=== PATIENT | male | born 1955 | race Caucasian/White ===

== ENCOUNTER 2018-02-01 18:42 | Observation (INO) | payer OTHER ==
--- OUTSIDE RECORDS SUMMARY | 2018-02-01 19:39 | XMS REPORT | Clinical Summary ---
:1955 Author Organization [facility] Address [address] [place] [address] Care Team Providers Name Role Phone Asked, No Pcp Primary Care Provider Unavailable Allergies Active Allergy Reactions Severity Noted Date Comments Iodine And Iodide Containing Products Anaphylaxis High Current Medications Prescription Sig. Disp. Refills Start Date End Date Status amoxicillin-pot Take 1 tablet by 0 03/30/2017 Active clavulanate (AUGMENTIN) mouth 2 (two) times 875-125 mg per tablet a day. atorvastatin (LIPITOR) 10 Take 10 mg by mouth 0 03/30/2017 Active MG tablet every morning. dextroamphetamine-ampheta Take 1 tablet by 0 04/26/2017 Active mine (ADDERALL) 20 mg mouth 3 (three) tablet times a day. gabapentin (NEURONTIN) 04/29/2017 Active 300 mg capsule losartan-hydrochlorothiaz Take 1 tablet by 0 03/30/2017 Active marge (HYZAAR) 100-12.5 mg mouth every per tablet morning. losartan-hydrochlorothiaz Take 1 tablet by 0 02/18/2017 Active marge (HYZAAR) 100-25 mg mouth every per tablet morning. meloxicam (MOBIC) 7.5 mg Take 7.5 mg by 0 03/30/2017 Active tablet mouth once daily. Active Problems Not on file Encounters Date Type Specialty Care Team Description 05/05/2017 Office Visit Neurosurgery Joaquin Adrian MD Cervical radiculopathy at C7 (Primary Dx) after 01/31/2017 Family History Medical History Relation Name Comments Colon cancer Mother Relation Name Status Comments Brother Alive Father Mother Sister Alive Sister Alive Sister Social History Tobacco Use Types Packs/Day Years Used Date Current Every Day Smoker Smokeless Tobacco: Never Used Alcohol Use Drinks/Week oz/Week Comments Yes Sex Assigned at Date Recorded Not on file Last Filed Vital Signs Not on file Plan of Treatment Health Maintenance Due Date Last Done Comments COLON CANCER SCREENING 2007 SHINGRIX VACCINE (#1) 2007 ZOSTER VACCINE 2017 INFLUENZA VACCINE 04/14/2018 Results Not on fileafter 01/31/2017 Insurance Payer Benefit Plan / Group Subscriber ID Type Phone Address NURIS [facility]WL[employer]WORK xxxxxxxxxxx HMO [phone] [facility], [address] [place], [place] [id number]
--- NOTE | 2018-02-01 21:26 | RAD REPORT ---
EXAM DESCRIPTION: RAD - Chest Pa And Lat (2 Views) - 02/01/2018 9:21 pm CLINICAL HISTORY: Pneumonia, chest pain. COMPARISON: None. TECHNIQUE: PA and lateral views of the chest were obtained. FINDINGS: The lungs are hyperexpanded compatible with COPD. The heart is upper limit of normal in si ze. No fracture or aggressive bony process. IMPRESSION: COPD without acute process identified.
--- NOTE | 2018-02-01 21:33 | RAD REPORT ---
EXAM DESCRIPTION: CT - Head Brain Wo Cont - 02/01/2018 9:24 pm CLINICAL HISTORY: Headache, seizure. COMPARISON: None. TECHNIQUE: All CT scans are performed using dose optimization technique as appropriate and may inclu de automated exposure control or mA/KV adjustment according to patient size. FINDINGS: No intracranial hemorrhage, hydrocephalus or extra-axial fluid collection.No areas of brai n edema or evidence of midline shift. Mild mucoperiosteal thickening involves the ethmoid air cells. 8 mm osteoma seen in the region of the frontal sinus. The remainder of the paranasal sinuses and mastoids are clear. The calvarium is intac t. IMPRESSION: No acute intracranial abnormality.
[2018-02-01 22:44] LABS: Absolute Monocytes 1.3 K/uL (0.1-1.3); Absolute Neutrophil 10.4 K/uL (1.8-8.0); Basophils % 0.8 % (0-1.3); Eosinophils % 4.2 % (0-4.4); Hematocrit 47.3 % (39.6-49.0); Lymphocytes % 24.2 % (15.3-44.8); MCH 30.7 pg (27.0-35.0); MCV 91.6 fL (80-100); MPV 7.8 fL (7.6-11.3); RBC Red Blood Cell Count 5.16 M/uL (4.33-5.43)
[2018-02-01 22:54] LABS: Albumin 4.8 g/dL (3.2-5.5); Potassium 3.6 mEq/L (3.6-5.0); Protein, Total 7.9 g/dL (6.0-8.3)
[2018-02-01] MEDS: NACHLORIDE 0.45% 1,000 ML IV SCH (23:09)
[2018-02-01 23:45] LABS: Urine Appearance CLOUDY; Urine Bilirubin NEGATIVE (NEG); Urine Blood NEGATIVE (NEG); Urine Color YELLOW; Urine Glucose NEGATIVE (NEG); Urine Protein 1+ (NEG); Urine Urobilinogen 0.2 mg/dL (0.2-1.0); Urine pH 5.5 (5.0-7.0)
[2018-02-01 23:46] LABS: Urine Microscopic Reflex ORDER UMIC
[2018-02-02 00:13] LABS: Urine Bacteria 20-50 /HPF (NONE SEEN); Urine RBC <5 /HPF (NONE SEEN)
[2018-02-02 00:14] LABS: Urine Culture Reflex Order REFLEXED
[2018-02-02] MEDS ORDERED: CIPROFLOXACIN 400mg IV 400 MG/200 ML BAG IV ONE (00:37)
[2018-02-02] MEDS ORDERED: CEFTRIAXONE 1 GM/NS 50 ML 1 GM/50 ML BAG IV ONE (00:39)
[2018-02-02 01:48] VITALS: O2SAT 98; BMI 25.5
[2018-02-02] MEDS ORDERED: CEFTRIAXONE 1000 MG/VIAL ONE (02:19)
[2018-02-02] MEDS ORDERED: AMITRIPTYLINE 10 MG TAB PO PRN (08:30)
[2018-02-02] MEDS: AMPHETAMINE SULFATE PO SCH ×3 (09:00→14:00)
--- NOTE | 2018-02-02 09:38 | RAD REPORT ---
EXAM DESCRIPTION: MRI - Brain Wo Cont - 02/02/2018 8:43 am CLINICAL HISTORY: Seizure, CVA. COMPARISON: 02/01/2018 CT head TECHNIQUE: Multi-sequence, multiplanar MR imaging of the brain was performed without contrast. FINDINGS: No intracranial hemorrhage, hydrocephalus or extra-axial fluid collections. No edema or sh ift of midline structures. 6 mm area of blooming artifact in the right cerebellar hemisphere posterio rly, probably related to hemosiderin deposition. A small cavernoma is suspected. DWI is negative for acute CVA. Midline structures are normally formed. Mastoid air cells and paranasal sinuses are clear. 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 Negative for acute CVA or other acute intracranial abnormality.
--- NOTE | 2018-02-02 10:06 | RAD REPORT ---
EXAM DESCRIPTION: CT - Abdomen Pelvis Wo Contrast - 02/02/2018 8:05 am CLINICAL HISTORY: Abdominal pain, flank pain, remote history of kidney stone COMPARISON: None. TECHNIQUE: Axial [address] imaging of the abdomen and pelvis was performed without IV contrast. No IV contrast was given because of allergy, abnormal renal function, patient refusal or physician re quest. No oral contrast administered. All CT scans are performed using dose optimization technique as appropriate and may include automated exposure control or mA/KV adjustment according to patient size. FINDINGS: No suspicious findings in the lung bases. No pericardial thickening or effusion. The liver, spleen and pancreas show no suspicious findings on non-contrast imaging. Gallbladder and b iliary tree are also without suspicious finding. No hydronephrosis or suspicious renal mass. Trace amount of stranding is seen in the perinephric fat. Lateral left mid kidney shows a 7 millimeter low-density area in the cortex that is probably a cyst. Findings not fully characterized. Long-term significance is doubtful. No significant adrenal finding . Isodense renal masses and pyelonephritis cannot be excluded in the absence of IV contrast. The urin yoli bladder is without significant finding. Prostate gland and seminal vesicles within normal limits. No dilated bowel loops or bowel wall thickening. No free air, free fluid or inflammatory stranding. N o hernia, mass or bulky lymphadenopathy. No suspicious bony findings. IMPRESSION: No hydronephrosis, obstructing calculus or acute finding identified. Pyelonephritis and isodense masses are not excluded on a noncontrast study. Full assessment is limited is the absence of IV contrast.
[2018-02-02] MEDS: NACHLORIDE 0.45% 1,000 ML IV SCH (11:12)
[2018-02-02 14:17] LABS: Absolute Lymphocytes (CBC) 3.3 K/uL (0.7-4.9); Absolute Monocytes 1.1 K/uL (0.1-1.3); Absolute Neutrophil 7.4 K/uL (1.8-8.0); Basophils % 0.8 % (0-1.3); Eosinophils % 7.4 % (0-4.4); Hematocrit 43.5 % (39.6-49.0); Lymphocytes % 25.7 % (15.3-44.8); MCH 31.2 pg (27.0-35.0); MCV 91.7 fL (80-100); MPV 7.9 fL (7.6-11.3); Monocytes % 8.9 % (3.3-12.3); RBC Red Blood Cell Count 4.75 M/uL (4.33-5.43)
[2018-02-02 14:37] LABS: Potassium 4.1 mEq/L (3.6-5.0)
[2018-02-02 16:42] VITALS: BP 144/66; TEMP 97.7
[2018-02-02] MEDS ORDERED: ATORVASTATIN 10 MG TAB PO SCH (21:00)
--- NOTE | 2018-02-03 02:06 | HP ---
Date of Admission: 02/01/2018 Chief Complaint: Two episodes of confusion. History Of Present Illness: A 62-year-old male who was brought to the office with history of 2 episo tesfaye of sweating and confusion. When the patient was brought to the office, he was able to give histo ry. However, he was not clear about the nature of spells he had as it was not clear why patient had such a history. The patient was admitted for observation. There was no history of seizures. No his tory of motor weakness. Past Medical History: The patient is known to have history of hypertension and osteoarthritis, and A DD. Family History: Noncontributory. Personal History: Allergic to shellfish and iodine. Home Medicines: Please refer to the chart. Review of Systems: No history of chest pain or shortness of breath. Physical Examination: General: Revealed 62-year-old male, alert at the time of exam. Afebrile. HEENT: Negative. Neck: Supple. JVD negative. Chest: Clear. Heart: Regular. Abdomen: Soft, nontender. Extremities: No edema. Laboratory Data: White count 16.6, hemoglobin normal. Chem profile; BUN 26, creatinine 2.04, otherw ise negative. Diagnostic Data: Chest x-ray negative. CT scan of the head and MRI of the head negative. Urinalysis, bacteriuria present. Assessment: 1.Probable urinary tract infection with secondary confusion. 2.Hypertension. 3.History of attention deficit disorder. Plan: The patient had IV Cipro and Rocephin. Today, the patient is fully alert. He did not have an y fever. However, he wants to go home. He was told that there is 10% chance that symptoms of urinar y tract infection might return. However, he is willing to take the risk and take oral antibiotics. He was given prescription for Cipro and Keflex, pending the urine culture reports. The patient was i nstructed to increase oral fluids and to hold off meloxicam. RRK/MODL Voice ID: [id number]
== END 2018-02-02 17:06 | disposition home or self-care (01) ==
LOC: 4TH 19:36
PROVIDERS: ADMIT Internal Medicine; ATTEND Internal Medicine
DX: R41.82 Altered mental status, unspecified (principal); I10 Essential (primary) hypertension; M19.90 Unspecified osteoarthritis, unspecified site; Z91.013 Allergy to seafood
CPT/HCPCS: 36415; 70450; 70551; 71046; 74176; 80048; 80053; 81003; 81015; 85025; 87040; 87086; 87088; G0378; J0696; J0744

== ENCOUNTER 2024-03-08 10:28 | Inpatient (IN) | payer OTHER ==
[2024-03-08] MEDS ORDERED: ONDANSETRON 4 MG/2 ML VIAL ONE (10:42)
[2024-03-08] MEDS ORDERED: KETOROLAC 30 MG/ML INJ ONE (10:43)
[2024-03-08] MEDS ORDERED: MORPHINE 4 MG/ML SYR ONE (10:43)
[2024-03-08] MEDS ORDERED: NA CHLORIDE 0.9% 1,000 ML ONE (10:43)
[2024-03-08 10:55] LABS: Absolute Basophils 0.1 K/uL (0-0.5); Absolute Eosinophils 0.8 K/uL (0-0.5); Absolute Lymphocytes (CBC) 3.7 K/uL (0.7-4.9); Absolute Monocytes 1.1 K/uL (0.1-1.3); Absolute Neutrophil 9.3 K/uL (1.8-8.0); Basophils % 0.7 % (0-1.3); Eosinophils % 5.6 % (0-4.4); Hematocrit 32.8 % (39.6-49.0); Lymphocytes % 24.7 % (15.3-44.8); MCH 30.7 pg (27.0-35.0); MCHC 33.7 g/dL (32.0-36.0); MCV 91.2 fL (80-100); MPV 7.1 fL (7.6-11.3); Monocytes % 7.5 % (3.3-12.3); Neutrophils % 61.5 % (41.7-73.7); Platelets 413 thou/uL (152-406); Red Cell Distribution Width 13.3 % (12.1-15.2)
[2024-03-08 11:19] LABS: Albumin 3.3 g/dL (3.4-5.0); Anion Gap 7.6 mEq/L (5.0-15.0); Bilirubin Total 0.4 mg/dL (0.2-1.0); Globulin 3.3 g/dL (2.3-3.5); Potassium 3.6 mEq/L (3.5-5.1); Protein, Total 6.6 g/dL (6.4-8.2)
[2024-03-08] MEDS ORDERED: NA CHLORIDE 0.9% 100 ML ONE (11:32)
[2024-03-08] MEDS ORDERED: CEFEPIME 1 GM/VIAL ONE (11:33)
--- NOTE | 2024-03-08 12:28 | RAD REPORT ---
EXAM DESCRIPTION: CT - Stone Protocol - 03/08/2024 12:05 pm CLINICAL HISTORY: Abd pain;Flank pain COMPARISON: Abdomen Pelvis Wo Contrast dated 02/02/2018 TECHNIQUE: Thin cut axial CT imaging of the abdomen and pelvis was performed without IV contrast. Mu ltiplanar reformats were generated and reviewed. All CT scans are performed using dose optimization technique as appropriate and may include automated exposure control or mA/KV adjustment according to patient size. FINDINGS: No suspicious findings in the lung bases. The liver shows diffuse parenchymal hypoattenuation suggesting steatosis. Adrenal glands, spleen, and pancreas show no suspicious findings. Gallbladder and biliary tree are also without suspicious findi ng. Symmetric renal contour, without suspicious parenchymal findings within limits of noncontrast techniq ue. No evidence of radiopaque calculi or hydroureteronephrosis. No dilated bowel loops or bowel wall thickening. No free air, free fluid or inflammatory stranding. N o hernia, mass or bulky lymphadenopathy. The urinary bladder is shows regional wall thickening along the left wall inferiorly, with adjacent pericystic fat stranding. Lobulated hyperdense material layer ing dependently, suggesting blood clots. Mild prostatomegaly. No suspicious bony findings. IMPRESSION: Regional left bladder wall thickening with adjacent pericystic fat stranding. This could relate to focal cystitis/inflammation, although possibility of malignancy cannot be entirely exclude d. Lobulated hyperdense material layering dependently in the bladder, suggesting blood clots. Other incidental findings as above. Findings were communicated to Daniel Arrington in the ED on 03/08/2024 at 11:20 a.m.
--- NOTE | 2024-03-08 13:05 | ER ---
Nurse's Notes [facility] Name: Emigdio Dhaliwal Age: 68 yrs Sex: Male : 1955 Arrival Date: 03/08/2024 Time: 10:28 Bed 8 Private MD: Diagnosis: Hematuria, unspecified;Other retention of urine;UTI/ Urinary tract infection, site not specified;Elevated white blood cell count Presentation: 03/08 10:33 Chief complaint: Patient states: "I feel like I have a kidney stone. For the past 4 mb9 days, I've been urinating blood and having pain in my pelvis area.". Coronavirus screen: Vaccine status: Patient reports being unvaccinated. Ebola Screen: No symptoms or risks identified at this time. Initial Sepsis Screen: Does the patient meet any 2 criteria? No. Patient's initial sepsis screen is negative. Does the patient have a suspected source of infection? No. Patient's initial sepsis screen is negative. Risk Assessment: Do you want to hurt yourself or someone else? Patient reports no desire to harm self or others. Onset of symptoms was March 08, 2024. 10:33 Method Of Arrival: Ambulatory mb9 10:33 Acuity: BEN 3 mb9 Triage Assessment: 10:36 General: Appears uncomfortable, Behavior is cooperative. Pain: Complains of pain in mb9 pelvis Pain does not radiate. Pain currently is 10 out of 10 on a pain scale. Quality of pain is described as sharp, stabbing, Pain began 2-3 days ago. Is continuous. EENT: No signs and/or symptoms were reported regarding the EENT system. Neuro: Pereira Agitation-Sedation Scale (RASS): 0 - Alert and Calm Level of Consciousness is awake, alert, obeys commands, Oriented to person, place, time, situation, Appropriate for age. Cardiovascular: Patient's skin is warm and dry. Respiratory: Airway is patent Respiratory effort is even, unlabored, Respiratory pattern is regular, symmetrical. GI: Abdomen is round non-distended. : Reports blood in urine. Derm: Skin is pink, warm \\T\\ dry. Musculoskeletal: Range of motion: intact in all extremities. Historical: - Allergies: 10:35 Iodine; mb9 - Home Meds: 10:35 Adderall XR 20 mg Oral Capsule, ER 24 hr [Active]; Lorazepam Oral [Active]; BuSpar Oral mb9 [Active]; - PMHx: 10:35 Hypertensive disorder; Anxiety; mb9 - PSHx: 10:35 Clavicle resection- Left; mb9 - Immunization history:: Adult Immunizations up to date. - Infectious Disease History:: Denies. - Social history:: Smoking status: Patient reports the use of cigarette tobacco products, denies chronic smoking, but will smoke occasionally. - Family history:: not pertinent. Screenin:[birth year] [facility] ED Fall Risk Assessment (Adult) History of falling in the last 3 months, ko1 including since admission No falls in past 3 months (0 pts) Confusion or Disorientation No (0 pts) Intoxicated or Sedated No (0 pts) Impaired Gait No (0 pts) Mobility Assist Device Used No (0 pt) Altered Elimination No (0 pt) Score/Fall Risk Level 0 - 2 = Low Risk Oriented to surroundings, Maintained a safe environment, Educated pt \\T\\ family on fall prevention, incl call for assistance when getting out of bed, Assessed \\T\\ reinforced patient's understanding of fall precautions, Provided non-skid footwear, Hourly rounding (assess needs \\T\\ fall precautionary measures) done, Used ambulatory aids as needed (educated on \\T\\ assisted with), Used gait belt as appropriate. Abuse screen: Denies threats or abuse. Denies injuries from another. Nutritional screening: No deficits noted. Tuberculosis screening: No symptoms or risk factors identified. Assessment: 10:57 General: Appears in no apparent distress. uncomfortable, Behavior is calm, cooperative, ko1 appropriate for age. Pain: Complains of pain in pelvis. Neuro: No deficits noted. Cardiovascular: No deficits noted. Respiratory: No deficits noted. GI: Bowel sounds present X 4 quads. Abd is soft and non tender X 4 quads. : Reports bloody urine. EENT: No deficits noted. Derm: No deficits noted. Musculoskeletal: No deficits noted. 12:19 Reassessment: Patient appears in no apparent distress at this time. Patient and/or ph family updated on plan of care and expected duration. Pain level reassessed. Patient is alert, oriented x 3, equal unlabored respirations, skin warm/dry/pink. 14:30 Reassessment: Pt refusing [address] T[place] at this time, states, " I really don't want a ph catheter. I've had one before and it was very painful. I've been able to pee at home and I think I can keep going.". Vital Signs: 10:33 BP 187 / 89; Pulse 96; Resp 18; Temp 97.9; Pulse Ox 98% ; Weight 99.79 kg; Height 6 ft. mb9 4 in. ; Pain 10/10; 12:19 BP 146 / 70; Pulse 67; Resp 16; Pulse Ox 100% on R/A; ph 13:30 BP 138 / 82; Pulse 68; Resp 18; Pulse Ox 98% on R/A; ph 10:33 Body Mass Index 26.78 (99.79 kg, 193.04 cm) mb9 10:33 Pain Scale: Adult mb9 ED Course: 10:30 Patient arrived in ED. rg4 10:34 Triage completed. mb9 10:34 Arm band placed on. mb9 10:37 Daniel Arrington MD is Attending Physician. manish 10:46 CBC with Diff Sent. bc6 10:46 CMP Sent. bc6 10:46 Lipase Sent. bc6 10:46 Initial lab(s) drawn, by me, sent to lab. Inserted saline lock: 20 gauge in left bc6 antecubital area, using aseptic technique. Blood collected. 10:49 Lynette Astorga, RN is Primary Nurse. ko1 10:57 Patient has correct armband on for positive identification. Allergy band placed. Bed in ko1 low position. Call light in reach. Side rails up X 1. Provided Education on: call light, labs. Pulse ox on. NIBP on. Door closed. Noise minimized. Lights dimmed. Warm blanket given. Pillow given. 10:57 No provider procedures requiring assistance completed. ko1 11:01 CT Stone Protocol In Process Unspecified. EDMS 13:04 Shahid Crawford is Hospitalizing Provider. manish 16:03 PO fluids given. Verbal reassurance given. waiting for a room assignment upstairs, ll1 verbalizes understanding. Administered Medications: 10:45 Drug: TORadol - Ketorolac IVP 15 mg IVP once Route: IVP; Site: left antecubital; mb9 10:47 Drug: Ondansetron IVP 4 mg IVP once; over 2 minutes Route: IVP; Site: left antecubital; mb9 10:51 Drug: NS 0.9% IV 1000 ml IV at 1 bolus Per protocol; 1000 mL bolus Route: IV; Rate: 1 mb9 bolus; Site: left antecubital; 10:51 Drug: morphine IVP or IV 4 mg IVP once over 4 mins Route: IVP; Infused Over: 4 mins; mb9 Site: left antecubital; 14:13 Drug: Cefepime IVPB 1 grams IVPB at 200 ml/hr once over 30 mins; (mix in NS 100 mL) ph Route: IVPB; Rate: 200 ml/hr; Infused Over: 30 mins; Site: left antecubital; 14:13 Drug: morphine IVP or IV 2 mg IVP once over 4 mins Route: IVP; Infused Over: 4 mins; ph Site: left antecubital; 14:13 Drug: NS 0.9% IV 1000 ml IV at 125 ml/hr continuous Route: IV; Rate: 125 ml/hr; Site: ph left antecubital; 16:41 Drug: morphine IVP or IV 2 mg IVP once over 4 mins Route: IVP; Infused Over: 4 mins; ph Site: left antecubital; Medication: 10:57 VIS not applicable for this client. ko1 Outcome: 13:05 Decision to Hospitalize by Provider. manish 17:39 Patient left the ED. ko1 Signatures: Dispatcher [employer] EDDaniel Chaves MD MD cha Hall, Patricia RN Flor Elizabeth ph4 Nay Anguiano RN RN ll1 Lynette Astorga RN RN Isela Dallas RN RN mb9 Ailin Healy 6
--- NOTE | 2024-03-08 13:05 | EDPHYS ---
Physician Documentation [facility] Name: Emigdio Dhaliwal Age: 68 yrs Sex: Male : 1955 Arrival Date: 03/08/2024 Time: 10:28 Bed 8 Private MD: Daniel Reynolds HPI: 03/08 12:54 This 68 yrs old Male presents to ER via Ambulatory with complaints of manish Possible Kidney Stone. 12:54 The patient presents with abdominal pain abdominal distention. Onset: The manish symptoms/episode began/occurred 3 day(s) ago. The patient presents with swelling, urinary symptoms, dysuria, urinary frequency, unable to void, gross hematuria. Onset: The symptoms/episode began/occurred 3 day(s) ago. Modifying factors: The symptoms are alleviated by nothing, the symptoms are aggravated by urinating. Associated signs and symptoms: The patient has no apparent associated signs or symptoms. The symptoms do not radiate. Modifying factors: The symptoms are alleviated by antacids, the symptoms are aggravated by nothing. Historical: - Allergies: 10:35 Iodine; mb9 - Home Meds: 10:35 Adderall XR 20 mg Oral Capsule, ER 24 hr [Active]; Lorazepam Oral [Active]; BuSpar Oral mb9 [Active]; - PMHx: 10:35 Hypertensive disorder; Anxiety; mb9 - PSHx: 10:35 Clavicle resection- Left; mb9 - Immunization history:: Adult Immunizations up to date. - Infectious Disease History:: Denies. - Social history:: Smoking status: Patient reports the use of cigarette tobacco products, denies chronic smoking, but will smoke occasionally. - Family history:: not pertinent. ROS: 12:54 Constitutional: Negative for fever, chills, and weight loss, Eyes: Negative for injury, manish pain, redness, and discharge, ENT: Negative for injury, pain, and discharge, Neck: Negative for injury, pain, and swelling, Cardiovascular: Negative for chest pain, palpitations, and edema, Respiratory: Negative for shortness of breath, cough, wheezing, and pleuritic chest pain, Abdomen/GI: Negative for abdominal pain, nausea, vomiting, diarrhea, and constipation, Back: Negative for injury and pain, MS/Extremity: Negative for injury and deformity, Skin: Negative for injury, rash, and discoloration, Neuro: Negative for headache, weakness, numbness, tingling, and seizure, Psych: Negative for depression, anxiety, suicide ideation, homicidal ideation, and hallucinations, Allergy/Immunology: Negative for hives, rash, and allergies, Endocrine: Negative for neck swelling, polydipsia, polyuria, polyphagia, and marked weight changes, Hematologic/Lymphatic: Negative for swollen nodes, abnormal bleeding, and unusual bruising, 12:54 : Positive for urinary symptoms, hematuria, burning with urination, difficulty urinating, Exam: 12:54 Constitutional: This is a well developed, well nourished patient who is awake, alert, manish and in no acute distress. Head/Face: Normocephalic, atraumatic. Eyes: Pupils equal round and reactive to light, extra-ocular motions intact. Lids and lashes normal. Conjunctiva and sclera are non-icteric and not injected. Cornea within normal limits. Periorbital areas with no swelling, redness, or edema. ENT: Nares patent. No nasal discharge, no septal abnormalities noted. Tympanic membranes are normal and external auditory canals are clear. Oropharynx with no redness, swelling, or masses, exudates, or evidence of obstruction, uvula midline. Mucous membranes moist. Neck: Trachea midline, no thyromegaly or masses palpated, and no cervical lymphadenopathy. Supple, full range of motion without nuchal rigidity, or vertebral point tenderness. No Meningismus. Chest/axilla: Normal chest wall appearance and motion. Nontender with no deformity. No lesions are appreciated. Cardiovascular: Regular rate and rhythm with a normal S1 and S2. No gallops, murmurs, or rubs. Normal PMI, no JVD. No pulse deficits. Respiratory: Lungs have equal breath sounds bilaterally, clear to auscultation and percussion. No rales, rhonchi or wheezes noted. No increased work of breathing, no retractions or nasal flaring. Abdomen/GI: Soft, non-tender, with normal bowel sounds. No distension or tympany. No guarding or rebound. No evidence of tenderness throughout. Back: No spinal tenderness. No costovertebral tenderness. Full range of motion. Skin: Warm, dry with normal turgor. Normal color with no rashes, no lesions, and no evidence of cellulitis. MS/ Extremity: Pulses equal, no cyanosis. Neurovascular intact. Full, normal range of motion. Neuro: Awake and alert, GCS 15, oriented to person, place, time, and situation. Cranial nerves II-XII grossly intact. Motor strength 5/5 in all extremities. Sensory grossly intact. Cerebellar exam normal. Normal gait. Psych: Awake, alert, with orientation to person, place and time. Behavior, mood, and affect are within normal limits. 12:54 : CVA tenderness, is absent, Male external genitalia: normal, no abrasion, no discharge, no erythema, no injury, no swelling, no tenderness, no evidence of ulceration, Bladder: distension, that is mild, that is moderate, tenderness, that is mild, Rectal exam: is not applicable, Sexual behavior: the patient is not sexually active, Vital Signs: 10:33 BP 187 / 89; Pulse 96; Resp 18; Temp 97.9; Pulse Ox 98% ; Weight 99.79 kg; Height 6 ft. mb9 4 in. ; Pain 10/10; 12:19 BP 146 / 70; Pulse 67; Resp 16; Pulse Ox 100% on R/A; ph 13:30 BP 138 / 82; Pulse 68; Resp 18; Pulse Ox 98% on R/A; ph 10:33 Body Mass Index 26.78 (99.79 kg, 193.04 cm) mb9 10:33 Pain Scale: Adult mb9 MDM: 10:37 Patient medically screened. manish 12:58 Differential diagnosis: nonspecific abdominal pain, UTI, urinary retention, manish prostatitis, urethritis, non-specific abd pain, pancreatitis, Prostatitis, Pyelonephritis, Ureterolithiasis, urinary tract infection. Data reviewed: vital signs, nurses notes, lab test result(s), radiologic studies, CT scan. Consideration of Admission/Observation Patient was admitted/placed on observation. Escalation of care including admission/observation considered. I considered the following discharge prescriptions or medication management in the emergency department Medications were administered in the Emergency Department. See MAR. Independent interpretation of the following test(s) in the Emergency Department CT Scan: My interpretation is ct stone. Test considered but Not performed: EKG: no ekg. Historians other than the Patient: Law enforcement: pt well informed. Care significantly affected by the following chronic conditions: Hypertension, anxiety. Counseling: I had a detailed discussion with the patient and/or guardian regarding the historical points, exam findings, and any diagnostic results supporting the discharge/admit diagnosis, lab results, radiology results, the need for further work-up and treatment in the hospital. 03/08 10:38 Order name: CBC with Diff; Complete Time: 12:48 [facility] 03/08 10:38 Order name: CMP; Complete Time: 12:48 [facility] 03/08 10:38 Order name: Lipase; Complete Time: 12:48 [facility] 03/08 11:21 Order name: Urine Culture [facility] 03/08 13:02 Order name: Urine Microscopic Only EDMS 03/08 14:01 Order name: Basic Metabolic Panel EDMS 03/08 14:01 Order name: Basic Metabolic Panel EDMS 03/08 14:01 Order name: Basic Metabolic Panel EDMS 03/08 14:01 Order name: Basic Metabolic Panel EDMS 03/08 14:01 Order name: Basic Metabolic Panel EDMS 03/08 14:01 Order name: Basic Metabolic Panel EDMS 03/08 14:01 Order name: CBC with Automated Diff EDMS 03/08 14:01 Order name: CBC with Automated Diff EDMS 03/08 14:01 Order name: CBC with Automated Diff EDMS 03/08 14:01 Order name: CBC with Automated Diff EDMS 03/08 14:01 Order name: CBC with Automated Diff EDMS 03/08 14:01 Order name: CBC with Automated Diff EDMS 03/08 14:01 Order name: Hemoglobin A1c EDMS 03/08 14:01 Order name: Hemoglobin A1c EDMS 03/08 14:01 Order name: Magnesium EDMS 03/08 14:01 Order name: Magnesium EDMS 03/08 14:01 Order name: Magnesium EDMS 03/08 14:01 Order name: Magnesium EDMS 03/08 14:01 Order name: Magnesium EDMS 03/08 14:01 Order name: Magnesium EDMS 03/08 14:01 Order name: Phosphorus EDMS 03/08 14:01 Order name: Phosphorus EDMS 03/08 14:01 Order name: Phosphorus EDMS 03/08 14:01 Order name: Phosphorus EDMS 03/08 14:01 Order name: Phosphorus EDMS 03/08 14:01 Order name: Phosphorus EDMS 03/08 10:38 Order name: CT Stone Protocol; Complete Time: 12:48 [facility] 03/08 14:02 Order name: EKG Electrocardiogram EDMS 03/08 10:38 Order name: IV Saline Lock; Complete Time: 10:46 manish 03/08 10:38 Order name: Labs collected and sent; Complete Time: 10:46 [facility] Administered Medications: 10:45 Drug: TORadol - Ketorolac IVP 15 mg IVP once Route: IVP; Site: left antecubital; mb9 10:47 Drug: Ondansetron IVP 4 mg IVP once; over 2 minutes Route: IVP; Site: left antecubital; mb9 10:51 Drug: NS 0.9% IV 1000 ml IV at 1 bolus Per protocol; 1000 mL bolus Route: IV; Rate: 1 mb9 bolus; Site: left antecubital; 10:51 Drug: morphine IVP or IV 4 mg IVP once over 4 mins Route: IVP; Infused Over: 4 mins; mb9 Site: left antecubital; 14:13 Drug: Cefepime IVPB 1 grams IVPB at 200 ml/hr once over 30 mins; (mix in NS 100 mL) ph Route: IVPB; Rate: 200 ml/hr; Infused Over: 30 mins; Site: left antecubital; 14:13 Drug: morphine IVP or IV 2 mg IVP once over 4 mins Route: IVP; Infused Over: 4 mins; ph Site: left antecubital; 14:13 Drug: NS 0.9% IV 1000 ml IV at 125 ml/hr continuous Route: IV; Rate: 125 ml/hr; Site: ph left antecubital; 16:41 Drug: morphine IVP or IV 2 mg IVP once over 4 mins Route: IVP; Infused Over: 4 mins; ph Site: left antecubital; Disposition Summary: 03/08/24 13:05 Hospitalization Ordered Notes: Hospitalization Status: Inpatient Admission manish Provider: Shahid Crawford cha Location: Telemetry/MedSur (Inpatient) manish Condition: Fair manish Problem: new manish Symptoms: have improved manish Bed/Room Type: Standard [facility] Room Assignment: 223(03/08/24 16:25) bd Diagnosis - Hematuria, unspecified manish - Other retention of urine manish - UTI/ Urinary tract infection, site not specified manish - Elevated white blood cell count manish Forms: - Medication Reconciliation Form manish - SBAR form manish - Leadership Thank You Letter manish Signatures: Dispatcher [employer] EDMS DirCrystal lewis Corey, MD MD cha Hall, Patricia RN RN ph Isela Todd RN RN mb9 Corrections: (The following items were deleted from the chart) 10:39 10:39 Stone Protocol+CT.RAD.BRZ ordered. EDMS EDMS 13:02 10:39 Urinalysis+U.LAB.BRZ ordered. EDMS EDMS 16:25 13:05 manish keller
--- NOTE | 2024-03-08 13:15 | P.HP ---
Certification for Inpatient Patient admitted to: Inpatient With expected LOS: >2 Midnights Practitioner: I am a practitioner with admitting privileges, knowledge of patient current condition, hospital course, and medical plan of care. Services: Services provided to patient in accordance with Admission requirements found in Title 42 Section 412.3 of the Code of Federal Regulations Patient History Date of Service: 03/08/24 Reason for admission: Urinary retention, gross hematuria History of Present Illness: Emigdio Dhaliwal is a 68-year-old male with past medical history of hypertension, anxiety, ADD,Kidney stones, hyperlipidemia, arthritis, chronic back pain who presents to the ED with chief complaint of abdominal pain and distentio for 4 days. He reports dysuria, urinary frequency, unable to void, gross hematuria. While in the ED urine was obtained with Talavera catheter due to his inability to urinate. CT abdomen pelvis revealed left bladder wall thickening with adjacent pericystic fat stranding, could relate to focal cystitis/inflammation, although possibility of malignancy cannot be entirely excluded, lobulated hyperdense material layering dependently in the bladder, suggesting blood clots. On examination, he has pelvic pain on palpation, calm, lung sound clear, alert and oriented. He reports not taking medications for HTN but is compliant with ADD and anxiety medications. Initial vitals BP 187 / 89; Pulse 96; Resp 18; Temp 97.9; Pulse Ox 98% Laboratory evaluation showing leukocytosis 15.2, platelets 413, BUN/creatinine 20/1.19, GFR 67, serum glucose 160. Emigdio will be admitted to hospitalist service for further evaluation and treatment of urinary tract infection and gross hematuria with retention. Allergies shellfish derived Allergy (Severe, Verified 02/01/18 20:45) Anaphylaxis iodine Allergy (Verified 02/01/18 20:45) Anaphylaxis Home Medications: Amitriptyline HCl 15 mg PO BEDTIME PRN 02/02/18 Amphetamine Sulfate [Evekeo] 20 mg PO TID 02/02/18 Atorvastatin Calcium [Lipitor*] 10 mg PO BEDTIME 02/02/18 Cephalexin [Keflex] 500 mg PO BID #14 cap 02/02/18 Ciprofloxacin HCl [Cipro 500 MG Tablet] 500 mg PO BID #14 tab 02/02/18 Losartan/Hydrochlorothiazide [Losartan-Hctz 100-12.5 mg Tab] 1 tab PO DAILY 02/02/18 Meloxicam 15 mg PO DAILY 02/02/18 - Past Medical/Surgical History Diabetic: No -: L clavicle resection -: ADD -: Kidney stones -: Hyperlipidemia -: Arthritis -: crushed vertebrae -: Hypertension -: Anxiety - Family History Father -: Heart disease, Hypertension Mother -: Cancer - Social History Smoking Status: Current some day smoker Alcohol use: Yes CD- Drugs: No Caffeine use: Yes Review of Systems Genitourinary: Dysuria, Frequency, Hematuria Physical Examination - Physical Exam General: Alert, In no apparent distress, Oriented x3 HEENT: Atraumatic, Normocephalic, PERRLA Neck: Supple, 2+ carotid pulse no bruit Respiratory: Clear to auscultation bilaterally, Normal air movement Cardiovascular: No edema, Normal pulses, Regular rate/rhythm, Normal S1 S2 Capillary refill: <2 Seconds Gastrointestinal: Soft and benign, Distended (obese), Tenderness (pelvis) Musculoskeletal: No swelling Integumentary: No rashes - Studies Laboratory Data (last 24 hrs) 03/08/24 03/08/24 10:04 10:04 WBC 15.20 H Hgb 11.0 L Hct 32.8 L Plt Count 413 H Sodium 138 Potassium 3.6 BUN 20 H Creatinine 1.19 Glucose 160 H Total Bilirubin 0.4 AST 37 ALT 35 Alkaline Phosphatase 58 Lipase 40 Assessment and Plan - Plan Assessment and plan Urinary tract infection associated with urinary retention Leukocytosis Gross hematuria History of kidney stones -CT abdomen pelvis revealed left bladder wall thickening with adjacent pericystic fat stranding, could relate to focal cystitis/inflammation, although possibility of malignancy cannot be entirely excluded, lobulated hyperdense material layering dependently in the bladder, suggesting blood clots. -Follow urine culture -Rocephin -bladder scan for post void residual -intake and output for better UOP monitoring History of HTN/HLD History of anxiety/ADD History of arthritis History of chronic back pain -Continue home medications if appropriate DVT PPx SCDs Full code LOS 2 to 3 days Discharge Plan: Home Plan to discharge in: 48 Hours - Advance Directives Does patient have a Living Will: No Does patient have a Durable POA for Healthcare: No
[2024-03-08 13:50] LABS: Sqamous Epithelial <5 /HPF (None Seen); Urine Bacteria 20-50 /HPF (<20); Urine Culture Reflex Order REFLEXED; Urine Micro Reflex YN NO BILL MICROSCOPIC; Urine RBC >50 /HPF (None Seen); Urine WBC >50 /HPF (<5)
[2024-03-08] MEDS: NA CHLORIDE 0.9% 1,000 ML IV SCH ×2 (14:00→17:58)
[2024-03-08] MEDS: CEFTRIAXONE 1,000 MG in NA CHLORIDE 0.9% 50 ML IVPB SCH (17:58)
[2024-03-08 18:05] VITALS: BMI 28.0
[2024-03-08 18:44] VITALS: O2SAT 98
[2024-03-08] MEDS ORDERED: MORPHINE 2 MG/ML SYR IV PRN (21:01)
[2024-03-08] MEDS: HYDROCODONE/APAP 10/325 TAB PO PRN (21:36)
[2024-03-09] MEDS: MORPHINE 4 MG/ML SYR IV PRN ×2 (02:03→11:42)
[2024-03-09 03:56] LABS: Absolute Basophils 0.1 K/uL (0-0.5); Absolute Eosinophils 0.9 K/uL (0-0.5); Absolute Lymphocytes (CBC) 3.3 K/uL (0.7-4.9); Absolute Monocytes 1.2 K/uL (0.1-1.3); Absolute Neutrophil 7.2 K/uL (1.8-8.0); Basophils % 0.9 % (0-1.3); Eosinophils % 7.3 % (0-4.4); Hematocrit 27.9 % (39.6-49.0); Hemoglobin 9.4 g/dL (13.6-17.9); Lymphocytes % 25.6 % (15.3-44.8); MCH 30.7 pg (27.0-35.0); MCHC 33.7 g/dL (32.0-36.0); MCV 91.2 fL (80-100); MPV 7.3 fL (7.6-11.3); Monocytes % 9.7 % (3.3-12.3); Neutrophils % 56.5 % (41.7-73.7); Platelets 333 thou/uL (152-406); RBC Red Blood Cell Count 3.05 M/uL (4.33-5.43); Red Cell Distribution Width 13.7 % (12.1-15.2)
[2024-03-09 04:10] LABS: Phosphorus 3.9 mg/dL (2.5-4.9)
--- NOTE | 2024-03-09 06:42 | P.PN ---
Date of Service: 03/09/24 Subjective Awake and feeling okay Complaining of pain after Rivera insertion Urine red color Emigdio reports inability to urinate standing up but can urinate when laying on his left side ROS 10 point ROS as noted above, otherwise negative Physical Exam General: Alert and oriented x3, NAD, uncomfortable HEENT: Atraumatic, Normocephalic, PERRLA Neck: Supple, 2+ carotid pulse no bruit Respiratory: Clear to auscultation bilaterally, symmetrical chest wall movement, on room air Cardiovascular: No edema, Normal pulses, Regular rate/rhythm, Normal S1 S2 Capillary refill: <2 Seconds Gastrointestinal: Soft and benign, Distended (obese), Tenderness (pelvis) : rivera catheter in place Musculoskeletal: No swelling Integumentary: No rashes Vitals Reviewed Problem list Urinary tract infection associated with urinary retention Leukocytosis Gross hematuria History of kidney stones History of HTN/HLD History of anxiety/ADD History of arthritis History of chronic back pain Assessment and Plan Urinary tract infection associated with urinary retention Leukocytosis Gross hematuria History of kidney stones -CT abdomen pelvis revealed left bladder wall thickening with adjacent pericystic fat stranding, could relate to focal cystitis/inflammation, although possibility of malignancy cannot be entirely excluded, lobulated hyperdense material layering dependently in the bladder, suggesting blood clots. -Follow urine culture- NGTD -Rocephin -bladder scan for post void residual -intake and output for better UOP monitoring -Dr. Curry consulted History of HTN/HLD History of anxiety/ADD History of arthritis History of chronic back pain -Continue home medications if appropriate DVT PPx SCDs Full code LOS 2 to 3 days
[2024-03-09] MEDS ORDERED: HEPA 1000U/500MLS 2,000 UNIT/1,000 ML BAG IV ONE (06:52)
[2024-03-09] MEDS: BUSPIRONE HCL 5 MG TABLET PO SCH (07:53)
[2024-03-09] MEDS: Dextroamphetamine/Amphetamine [Adderall] 20 MG Tablet PO SCH (07:54)
[2024-03-09] MEDS: SODIUM CHLORIDE IRRIG SOLUTION 3,000 ML BAG IRR SCH ×2 (10:25→11:47)
[2024-03-09] MEDS ORDERED: LORAZEPAM 1 MG TABLET PO SCH (21:00)
[2024-03-09] MEDS: LORAZEPAM 0.5 MG TABLET PO SCH (21:31)
--- NOTE | 2024-03-09 22:19 | P.CNS ---
Date of Consult: 03/09/24 Reason for Consult: gross hematuria Chief Complaint: Urinary retention, gross hematuria History of Present Illness: 68-year-old gentleman with hypertension, hyperlipidemia, anxiety disorder/ADD, and arthritides who presented with a 2-week history of gross hematuria and progressive development of clot retention. He denied any pre-existing dysuria or significant obstructive LUTS, but during that 2-week period, he found that he was unable to urinate when standing, but he was able to urinate if he was lying on his side. Past medical history: As above plus ureterolithiasis Past surgical history: Kidney stones requiring ureteroscopy with laser lithotripsy Allergies: Severe anaphylactic reaction to iodine Social history: He is an active smoker of 2 packs/day for 55 years Examination: Patient well-appearing and in no acute distress Alert, awake, oriented x 3 No dyspnea or sign of respiratory distress Urethral Talavera catheter in place, 22 Slovak, draining pink to tea colored urine. Meatus orthotopic. 03/08/2024 to 03/09/2024 labs: WBC 15.2-12.7, hemoglobin 11.0-9.4, platelets 413-333 Creatinine 1.19, LFTs normal, UA micro only greater than 50 WBCs per hpf, greater than 50 RBCs per hpf, 20-50 bacteria. Urine culture NGTD CT abdomen and pelvis without contrast: Symmetric renal contour, without suspicious parenchymal findings within limits of noncontrast technique. No evidence of radiopaque calculi or hydroureteronephrosis. No dilated bowel loops or bowel wall thickening. No free air, free fluid or inflammatory stranding. No hernia, mass or bulky lymphadenopathy. The urinary bladder is shows regional wall thickening along the left wall inferiorly, with adjacent pericystic fat stranding. Lobulated hyperdense material layering dependently, suggesting blood clots. Mild prostatomegaly. No suspicious bony findings. IMPRESSION: Regional left bladder wall thickening with adjacent pericystic fat stranding. This could relate to focal cystitis/inflammation, although possibility of malignancy cannot be entirely excluded. Lobulated hyperdense material layering dependently in the bladder, suggesting blood clots. Bladder irrigation procedure note: I the catheter from the drainage bag. The CBI had already been capped per my instructions and the patient had been receiving manual irrigation with the nurses. I then utilized a 60 cc catheter tip syringe to irrigate his bladder and removed a small quantity of formed clot. I continue to irrigate more aggressively, with a total of 500 cc of normal saline, to remove all formed clot on the mucosa of his bladder, until no additional clots were removed desp ite distention of his bladder and aggressive irrigation. He tolerated the procedure well and without obvious complications. The catheter was connected back to the drainage bag, and the drainage was clear fluid/urine. Assessment and recommendation: 68-year-old gentleman with hypertension, hyperlipidemia, anxiety disorder/ADD, arthritides, and history of recurrent ureterolithiasis now without nep hrolithiasis seen on CT admitted with gross hematuria and clot retention as a [id number] smoker with obstructive LUTS potentially due to clot, of stone, or tumor. -As the urine is clear now following bladder irrigation, recommend it be observed overnight. If the urine remains clear to light pink in the morning, a decision can be made as described below. Reasonable to keep patient n.p.o. after midnight tonight until assessment in the a.m. -Should there be recurrence of significant pink urine, I recommended nursing irrigate the catheter with 60 cc NS as needed -I counseled the patient on the differential and explained the need for outpatient cystoscopic evaluation. -Since preliminary urine cultures showed no growth, as long as his urine remains clear overnight, the patient could potentially be discharged home tomorrow. -I recommended he at least consider going home with a catheter, since what ever process resulted in his obstruction, especially if due to a stone, could occur again. Alternatively, if the obstruction was only acutely due to the presence of a clot from a bladder tumor, he could reasonably undergo voiding trial in the a.m. In that case, the catheter should be removed promptly by 8 AM, and the patient would be allowed only till 2 PM to void. If unable to void by 2 PM, an 18 Slovak coud catheter should be properly reinserted. If able to void, the voided volumes should be recorded, and a postvoid residual assessment via bladder scan should be obtained. If the postvoid residual volume is greater than the voided volume, a new 18 Slovak coud catheter should immediately be reinserted. -Follow-up as an outpatient within the next 3 weeks for cystoscopy -CT with IV contrast and delayed phase imaging will be required to rule out upper tract urothelial malignancy, and if possible, this may be obtained prior to his follow-up with me as an outpatient for cystoscopy. -Should there be recurrence of significant gross hematuria requiring repeat manual irrigation, please notify me directly about this patient indicating prior consult already delivered. Allergies iodine Allergy (Severe, Verified 03/08/24 18:10) Anaphylaxis shellfish derived Allergy (Severe, Verified 03/08/24 18:10) Anaphylaxis Home medications list reviewed: Yes Home Medications: Buspirone HCl [Buspar] 10 mg PO BID 03/08/24 Dextroamphetamine/Amphetamine [Adderall 20 mg Tablet] 20 mg PO BID 03/08/24 LORazepam [Lorazepam] 5 mg PO BEDTIME 03/08/24 - Past Medical/Surgical History Diabetic: No -: L clavicle resection -: ADD -: Kidney stones -: Hyperlipidemia -: Arthritis -: crushed vertebrae -: Hypertension -: Anxiety -: L clavicle resection -: removal of kidney stone -: nerve sx in finger - Family History Father Medical History: Heart disease, Hypertension Mother Medical History: Cancer - Social History Smoking Status: Current some day smoker Alcohol use: Yes CD- Drugs: No Caffeine use: Yes Place of Residence: Home Physical Examination Temp Pulse Resp BP Pulse Ox 98.3 F 71 18 175/78 H 96 03/09/24 20:00 03/09/24 20:00 03/09/24 20:48 03/09/24 20:00 03/09/24 20:00 - Problems (1) Gross hematuria Current Visit: Yes Status: Acute (2) Clot retention of urine Current Visit: Yes Status: Acute (3) Recurrent nephrolithiasis Current Visit: Yes Status: Acute (4) Chain smoker Current Visit: Yes Status: Acute (5) Lower urinary tract symptoms (LUTS) Current Visit: Yes Status: Acute Critical Care: No Time Spent Managing Pts care (In Minutes): 45
[2024-03-10 04:10] LABS: Absolute Basophils 0.2 K/uL (0-0.5); Absolute Eosinophils 0.7 K/uL (0-0.5); Absolute Lymphocytes (CBC) 2.5 K/uL (0.7-4.9); Absolute Monocytes 1.4 K/uL (0.1-1.3); Absolute Neutrophil 7.3 K/uL (1.8-8.0); Basophils % 1.4 % (0-1.3); Eosinophils % 5.7 % (0-4.4); Hematocrit 26.6 % (39.6-49.0); Hemoglobin 8.9 g/dL (13.6-17.9); Lymphocytes % 20.6 % (15.3-44.8); MCH 30.6 pg (27.0-35.0); MCHC 33.6 g/dL (32.0-36.0); MCV 91.1 fL (80-100); MPV 7.4 fL (7.6-11.3); Monocytes % 11.3 % (3.3-12.3); Nucleated Red Blood Cells % 0.1 % (0-0); Platelets 333 thou/uL (152-406); RBC Red Blood Cell Count 2.92 M/uL (4.33-5.43); Red Cell Distribution Width 13.6 % (12.1-15.2)
[2024-03-10 04:22] LABS: Anion Gap 5.8 mEq/L (5.0-15.0); Magnesium 2.1 mg/dL (1.6-2.4); Phosphorus 3.6 mg/dL (2.5-4.9); Potassium 3.8 mEq/L (3.5-5.1)
[2024-03-10] MEDS: HYDRALAZINE HCL 20 MG/ML VIAL IV PRN (11:57)
[2024-03-10] MEDS: AMLODIPINE 5 MG TAB PO ONE (14:43)
--- NOTE | 2024-03-10 15:58 | P.DS ---
Admission Date: 03/08/24 Discharge Date: 03/10/24 Disposition: ROUTINE DISCHARGE Discharge Condition: FAIR Reason for Admission: Urinary retention, gross hematuria Brief History of Present Illness: Diagnosis Urinary tract infection associated with urinary retention Leukocytosis Gross hematuria History of kidney stones History of HTN/HLD History of anxiety/ADD History of arthritis History of chronic back pain HPI 03/08/2024 Emigdio Dhaliwal is a 68-year-old male with past medical history of hypertension, anxiety, ADD,Kidney stones, hyperlipidemia, arthritis, chronic back pain who presents to the ED with chief complaint of abdominal pain and distentio for 4 days. He reports dysuria, urinary frequency, unable to void, gross hematuria. While in the ED urine was obtained with Rivera catheter due to his inability to urinate. CT abdomen pelvis revealed left bladder wall thickening with adjacent pericystic fat stranding, could relate to focal cystitis/inflammation, although possibility of malignancy cannot be entirely excluded, lobulated hyperdense material layering dependently in the bladder, suggesting blood clots. On examination, he has pelvic pain on palpation, calm, lung sound clear, alert and oriented. He reports not taking medications for HTN but is compliant with ADD and anxiety medications. Initial vitals BP 187 / 89; Pulse 96; Resp 18; Temp 97.9; Pulse Ox 98% Laboratory evaluation showing leukocytosis 15.2, platelets 413, BUN/creatinine 20/1.19, GFR 67, serum glucose 160. Emigdio will be admitted to hospitalist service for further evaluation and treatment of urinary tract infection and gross hematuria with retention. Hospital Course: Emigdio Dhaliwal is a pleasant 68-year-old male with a past medical history significant forhypertension, anxiety, ADD,Kidney stones, hyperlipidemia, arthritis, chronic back pain who was admitted to the [facility] on 03/08/2024 for hematuria and abdominal pain. Emigdio Dhaliwal presented to the ED with complaints of abdominal distention with dysuria and gross hematuria. Dr. Curry was consulted. He has tolerated the rivera catherter and was able to void appropriately when removed. He was able to urinate 450 ml which is a sufficient amount of urine required by Dr. Curry to discharge and follow up outpatient. Hypertension was noted during this admission, Norvasc was prescribed, his PCP can make changes as needed. Dr. Curry will investigate his urinary retention symptoms and the possible bladder cancer/mass that was seen on the CT abd/pelvis. On 03/09/2024, Emigdio was seen on morning rounds and deemed medically stable for discharge. Emigdio was discharged with instructions to schedule follow-up appointments with PCP and Dr. Resendez. Emigdio was provided prescriptions for Norvasc and ciprofloxacin. The patient and family members were given the opportunity to ask questions and reported no further questions. Furthermore, all questions were answered to the best of my ability. A copy of this discharge summary will be sent to the above providers to facilitate continuity of care. Physical Exam General: AAO x3, NAD HEENT: Atraumatic, Normocephalic, PERRLA Neck: Supple, 2+ carotid pulse no bruit Respiratory: Clear to auscultation bilaterally, symmetrical chest wall movement, on room air Cardiovascular: No edema, Normal pulses, RRR, Normal S1 S2 present Capillary refill: <2 Seconds Gastrointestinal: Soft and benign on palpation, Distended (obese), Tenderness (pelvis) Musculoskeletal: No swelling Integumentary: No rashes Vital Signs/Physical Exam: Temp Pulse Resp BP Pulse Ox 99.2 F 74 18 185/74 H 98 03/10/24 12:00 03/10/24 14:43 03/10/24 12:00 03/10/24 14:43 03/10/24 12:00 Laboratory Data at Discharge: WBC 12.00 thou/uL (4.3-10.9) H 03/10/24 03:41 Hgb 8.9 g/dL (13.6-17.9) L 03/10/24 03:41 Hct 26.6 % (39.6-49.0) L 03/10/24 03:41 Plt Count 333 thou/uL (152-406) 03/10/24 03:41 Sodium 138 mEq/L (136-145) 03/10/24 03:41 Potassium 3.8 mEq/L (3.5-5.1) 03/10/24 03:41 BUN 10 mg/dL (7-18) 03/10/24 03:41 Creatinine 0.95 mg/dL (0.70-1.30) 03/10/24 03:41 Glucose 100 mg/dL (74-106) 03/10/24 03:41 Phosphorus 3.6 mg/dL (2.5-4.9) 03/10/24 03:41 Magnesium 2.1 mg/dL (1.6-2.4) 03/10/24 03:41 Total Bilirubin 0.4 mg/dL (0.2-1.0) 03/08/24 10:04 AST 37 U/L (15-37) 03/08/24 10:04 ALT 35 U/L (16-61) 03/08/24 10:04 Alkaline Phosphatase 58 U/L (45-117) 03/08/24 10:04 Lipase 40 U/L (13-75) 03/08/24 10:04 Home Medications: Buspirone HCl [Buspar] 10 mg PO BID 03/08/24 Dextroamphetamine/Amphetamine [Adderall 20 mg Tablet] 20 mg PO BID 03/08/24 LORazepam [Lorazepam] 5 mg PO BEDTIME 03/08/24 Amlodipine Besylate [Norvasc] 5 mg PO DAILY 30 Days #30 tab 03/10/24 Ciprofloxacin HCl [Cipro 500 MG Tablet] 500 mg PO DAILY 7 Days #14 tab 03/10/24 New Medications: Ciprofloxacin HCl [Cipro 500 MG Tablet] 500 mg PO DAILY 7 Days #14 tab Amlodipine Besylate [Norvasc] 5 mg PO DAILY 30 Days #30 tab Physician Discharge Instructions: Emigdio Dhaliwal presented to the ED with complaints of abdominal distention with dysuria and gross hematuria. Dr. Curry was consulted. You were able to urinate a sufficient amount of urine to discharge and follow up outpatient. Please start taking Norvasc to help manage your Blood pressure, your PCP can make changes as needed. 1. Please call and schedule a follow-up appointment with your PCP in 3-5 days - Please follow-up with your PCP for medication refills/adjustments -Make adjustments to your blood pressure medication 2. Please call and schedule a follow-up appointment with Dr. Resendez in 3-5 days 3. Continue regular diet 4. No activity restrictions 5. Return to the ED if symptoms worsen New medications Ciprofloxacin 500 mg p.o. twice daily x 7 days Norvasc 5 mg p.o. daily x 30 days Diet: ADA Activity: Ad karlee Followup: NONE,NONE [Primary Care Provider] - Dariusz Curry [ACTIVE - CAN ADMIT] -
[2024-03-10 16:20] VITALS: BP 172/60; TEMP 99.4
== END 2024-03-10 16:57 | disposition home or self-care (01) | DRG 690 ==
LOC: ER 10:28 → ERHOLD 13:54 → 2ND 17:46
PROVIDERS: ADMIT Internal Medicine; ATTEND Internal Medicine
PROC: 0T9B70Z Drainage of Bladder with Drainage Device, Via Natural or Artificial Opening (ICD-10-PCS; principal; 2024-03-08)
DX: N39.0 Urinary tract infection, site not specified (principal); I10 Essential (primary) hypertension; E78.5 Hyperlipidemia, unspecified; F41.9 Anxiety disorder, unspecified; N20.0 Calculus of kidney; G89.29 Other chronic pain; M54.9 Dorsalgia, unspecified; D72.829 Elevated white blood cell count, unspecified; F17.210 Nicotine dependence, cigarettes, uncomplicated; R31.0 Gross hematuria; R33.8 Other retention of urine; Z91.013 Allergy to seafood; Z79.899 Other long term (current) drug therapy; Z91.048 Other nonmedicinal substance allergy status; Z91.148 Patient's other noncompliance with medication regimen for other reason
CPT/HCPCS: 36415; 74176; 76377; 80048; 80053; 81015; 83036; 83690; 83735; 84100; 85025; 87086; 87088; 96374; 96375; 99284; J0360; J0692; J0696; J2405; J7030

== ENCOUNTER 2024-04-12 09:10 | Day surgery (SDC) | payer OTHER ==
[2024-04-07 13:41] LABS: Absolute Eosinophils 0.9 K/uL (0-0.5); Absolute Neutrophil 0.4 K/uL (1.8-8.0); Eosinophils % 9.1 % (0-4.4); Hematocrit 36.6 % (39.6-49.0); Lymphocytes % 38.8 % (15.3-44.8); MCH 29.1 pg (27.0-35.0); MCHC 32.8 g/dL (32.0-36.0); MCV 88.7 fL (80-100); Neutrophils % 4.1 % (41.7-73.7); Platelets 399 thou/uL (152-406); RBC Red Blood Cell Count 4.13 M/uL (4.33-5.43); Red Cell Distribution Width 13.9 % (12.1-15.2)
[2024-04-07 13:57] LABS: Anion Gap 10.6 mEq/L (5.0-15.0); Potassium 3.6 mEq/L (3.5-5.1)
--- NOTE | 2024-04-07 14:03 | RAD REPORT ---
EXAM DESCRIPTION: Praveen Williamson (2 Views)04/07/2024 1:12 pm CLINICAL HISTORY: Preop for genitourinary surgery. Hypertension COMPARISON: 2017 FINDINGS: The lungs appear clear of acute infiltrate. The heart is normal size IMPRESSION: No acute abnormalities displayed
[2024-04-07 14:26] LABS: Blood Morphology Comment NOT SEEN (NOT SEEN); Platelet Estimate ADEQ; White Blood Cell Scan OK (OK)
--- NOTE | 2024-04-11 17:09 | EKG ---
Test Date: 2024-04-07 Test Time: 12:54:52 Keg Filler: MAI MEASUREMENT RESULTS: Intervals: Rate: 79 IL: 186 QRSD: 150 QT: 428 QTc: 490 [place]: P: 77 IL: 186 QRS: 3 T: 56 INTERPRETIVE STATEMENTS: Normal sinus rhythm Right bundle branch block Abnormal ECG No previous ECG available for comparison Electronically Signed On 04-11-24 17:05:36 CDT by Bhaskar Fu
[2024-04-12] MEDS: Ringers Lactate 1,000 ML IV ONE (09:35)
[2024-04-12 09:49] VITALS: BP 176/84; TEMP 97.8; O2SAT 99
[2024-04-12] MEDS ORDERED: MIDAZOLAM HCL 2 MG/2 ML INJ ONE (12:31)
[2024-04-12] MEDS ORDERED: LIDOCAINE 1% MPF 5 ML VIAL ONE (12:31)
[2024-04-12] MEDS ORDERED: FENTANYL CITR 250 MCG/5 ML ONE (12:31)
[2024-04-12] MEDS ORDERED: propofoL 200 MG/20 ML VIAL IV ONE (12:31)
== END 2024-04-12 13:06 | disposition home or self-care (01) ==
LOC: OR 09:10
PROVIDERS: ATTEND Urology
PROC: 0TBB8ZX Excision of Bladder, Via Natural or Artificial Opening Endoscopic, Diagnostic (ICD-10-PCS; principal; 2024-04-12 11:00)
DX: N32.9 Bladder disorder, unspecified (principal); N39.0 Urinary tract infection, site not specified; Z53.09 Procedure and treatment not carried out because of other contraindication
CPT/HCPCS: 52204; 93005; 87088; 85025; 87086; 80048; 36415; 87077; 87186; 71046; J7120; J2001; J2250; J2704; J3010

== ENCOUNTER 2024-04-26 11:00 | Day surgery (SDC) | payer OTHER ==
[2024-04-26] MEDS ORDERED: Ringers Lactate 1,000 ML IV ONE (11:22)
[2024-04-26] MEDS ORDERED: ONDANSETRON 4 MG/2 ML VIAL ONE (15:13)
[2024-04-26] MEDS ORDERED: LIDOCAINE 1% MPF 5 ML VIAL ONE (15:13)
[2024-04-26] MEDS ORDERED: propofoL 200 MG/20 ML VIAL IV ONE (15:13)
[2024-04-26] MEDS ORDERED: FENTANYL CITR 100 MCG/2 ML ONE (15:13)
[2024-04-26] MEDS ORDERED: EPHEDRINE SULF 50 MG/ML VIAL ONE (15:30)
[2024-04-26] MEDS ORDERED: dexAMETHasone 10 MG/ML VIAL ONE (15:31)
[2024-04-26] MEDS: CEFAZOLIN SODIUM 2 GM/VIAL ONE (15:33)
[2024-04-26] MEDS ORDERED: ROCURONIUM 50 MG/5 ML VIAL IV ONE (16:00)
[2024-04-26 16:41] VITALS: O2SAT 100
[2024-04-26 17:11] VITALS: BP 145/67; TEMP 97.2
[2024-04-26] MEDS: HYDROCODONE/APAP 5/325 MG TAB ONE (17:37)
--- NOTE | 2024-04-26 22:10 | RAD REPORT ---
EXAM DESCRIPTION: RAD - Urethrocystogrphy Retrograde - 04/26/2024 4:35 pm CLINICAL HISTORY: RUMA RETROGRADE COMPARISON: None available. FINDINGS: Eighteen images and 4 cine series were sent to PACS, documenting fluoroscopy use during an image guided bilateral retrograde pyelography and right ureteral stenting procedure. No radiologist was available for the procedure, nor will any image interpretation he provided. Please refer to the p rocedural report for additional details. Fluoroscopy time: 1:04 Minutes. IMPRESSION: Documentation of fluoroscopy utilization as above.
--- NOTE | 2024-04-27 01:03 | OP ---
Surgeon: KYLE DEL CASTILLO Preoperative Diagnoses: 1.Gross hematuria. 2.Bladder lesion. Postoperative Diagnoses: 1.Urothelial mucosal lesion/tumor. 2.Right renal pelvic filling defect and calyceal blunting. 3.BPH with obstruction and symptoms. Principal Procedures: 1.Cystoscopy with bladder biopsies and fulguration. 2.Bilateral retrograde pyelography studies. 3.Attempted right ureteroscopy. 4.Right ureteral stent placement. 5.Right ureteral wash/barbotage cytology. Indication For Procedure: Mr. Dhaliwal presented to the Urology Clinic with gross hematuria and under went evaluation using anatomic imaging without IV contrast because of his severe iodine allergy. He subsequently underwent cystoscopic evaluation, which revealed a couple of areas of erythematous mucos a of limited suspicion, but in the absence of any other source for the gross hematuria, operative cys toscopy with bladder biopsies were recommended, and because of his iodine allergy, at the same time, retrograde studies may be performed. Procedure In Detail: The patient was consented in the preoperative holding area before being transfe rred to the operative suite, where general anesthesia was induced. He was given Ancef 2 g IV antimic robial prophylaxis, and pneumo boots were provided for DVT prophylaxis. He was placed in the lithoto my position, padded and secured to the table appropriately, and his genitalia was prepped with Hibicl ens before being draped in standard fashion. The case was begun using a 22-Swedish rigid cystoscope t o traverse the urethra and into the bladder after navigating beyond the point of significant prostati c urethral obstruction with lateral lobar hypertrophy, [id number] extended prostatic urethral length, and mild intravesical projection of a median lobe that abutted near the trigone, but did not obscure the ureteral orifices with bladder filled. While the median lobe was somewhat prominent ass ociated with an elevated median bar, the entirety of the channel was potentially still nicely amenabl e to management via the UroLift if so desired at a later time. Upon entry into the bladder, I decompressed of fluid and urine and then surveyed the mucosa in its en tirety using both the 30 and 70-degree lens. Within the left lateral wall anteriorly and posteriorly were 2 patches of irregular mucosa suspicious for urothelial carcinoma. Each patch was approximatel y 1 cm in diameter. As a result, I utilized a cold cup biopsy forceps in each location to biopsy and remove those lesions of suspicion. I then utilized a Bugbee electrode at a cautery setting of 30 to fulgurate the base of each of those resected areas until hemostatic. I then turned my attention to the left ureteral orifice which was cannulated using the tip of the Sensor wire and a 5-Swedish ureter al access catheter. A retrograde pyelogram was then performed. Left retrograde pyelography: Using a 70:30 mixture of Omnipaque and saline, contrast was injected vi a the lumen of the 5-Swedish ureteral access catheter and did propagate up the distal into the mid and proximal ureter before entering the renal pelvis and delineating each of the calices of the kidney w ithout any filling defects noted whatsoever. The calices were sharp and the infundibulopelvic region s were also appropriately narrow/sharp without filling defect noted. Upon removal of the 5-Swedish ur eteral access catheter, there was prompt efflux of contrast from the collecting system, which did pro mptly drain as evidenced fluoroscopically. As a result, I turned my attention to the patient's right side in the right ureteral orifice. I cannulated this with the tip of a Sensor wire and a 5-Swedish ureteral access catheter. Right retrograde pyelography: Using a 70:30 mixture of Omnipaque and saline, I again injected that m ixture up the 5-Swedish ureteral access catheter, which did propagate up the distal into the mid and p roximal ureter before there was a slight delayed entry into the renal pelvis on the right. The kidne y did appear to be potentially slightly malrotated, and there was an area of abnormal incomplete fill ing at the UPJ on the pelvic side inferiorly of uncertain significance. Further, within a mid pole i nfundibulum, there was blunting without normal caliceal distribution, suspicious for possible filling defect. As a result, given the 2 findings seen involving the renal pelvis and the mid lower pole ca lyx of the right kidney, I immediately recommended ureteroscopic investigation. So I passed a Sensor wire via the 5-Swedish ureteral access catheter into the upper pole calyx of the right kidney and pas sed a dual-lumen catheter over the Sensor wire after removing the 5-Swedish ureteral access catheter. While confirmed to be in the appropriate intraluminal location using contrast injected via the secon d lumen of the dual-lumen catheter, the dual-lumen catheter would not pass beyond the mid portion of the ureter as it reached a point of obstruction there of uncertain etiology. I passed a Bentson guid ewire via the second lumen of the dual-lumen catheter to create a railroad track type scenario and at tempted to pass the dual-lumen catheter over the 2 wires, but this still would not pass beyond this p oint of obstruction. As a result, I removed the dual-lumen catheter and the Bentson guidewire leavin g the Sensor wire in place and I elected to forego any attempts at further ureteroscopy since if I wa s not able to pass the dual-lumen catheter, I would be unable to likely pass the digital flexible ure teroscope. As a result, I back-loaded the cystoscope over the indwelling safety wire and I passed a 6-Swedish x 26 cm double-J ureteral stent with a coil observed fluoroscopically in the upper pole an x of the right kidney and 1 formed cystoscopically within his bladder. I then decompressed his bladd er of fluid and urine, and took the patient out of the lithotomy position. He was then transferred t o a stretcher before being transferred to the recovery room in good condition. Complications: None. Discharge Disposition: While I did inquire of the pharmacy whether a dose of gemcitabine could be pr ovided for intravesical administration in the 6 hours postoperative period, at around 3 o'clock p.m., the chemotherapeutic pharmacy was already closed and all of the compounding pharmacist had already l eft. As a result, no one was available to mix the gemcitabine for me to provide it to the patient he re today. As such, the patient should follow up within the next few weeks to discuss the pathology of the biops ies as well as the barbotage cytology taken from the right renal pelvis and ureter. Subsequent follo wup will be required operatively to perform definitive right ureteroscopy and investigation of the fi lling defects seen in the renal pelvis inferiorly and in the lower mid pole calyx on the right. This may be established within the coming weeks with ureteroscopy and possible biopsy. Other therapy anastacia l be directed toward any pathologic findings of the biopsies taken of his bladder today or any positi ve findings on the barbotage cytology taken. Addendum: While the dual-lumen catheter was in place within the right ureter, I injected via 1 lumen of the dual-lumen catheter a bolus of approximately 25 to 30 cc of sterile saline and collected the efflux of that bolus and urine out of the second lumen of the dual-lumen catheter. This was sent for pathologic analysis as right ureteral wash/barbotage cytology. WR/MODL Voice ID: [id number] Report ID: [id number]
== END 2024-04-26 18:25 | disposition home or self-care (01) ==
LOC: OR 11:00
PROVIDERS: ATTEND Urology
PROC: 0TBB8ZX Excision of Bladder, Via Natural or Artificial Opening Endoscopic, Diagnostic (ICD-10-PCS; 2024-04-26)
PROC: 0TBB8ZX Excision of Bladder, Via Natural or Artificial Opening Endoscopic, Diagnostic (ICD-10-PCS; principal; 2024-04-26 12:45)
DX: D09.0 Carcinoma in situ of bladder (principal); R31.0 Gross hematuria; N32.9 Bladder disorder, unspecified; N40.1 Benign prostatic hyperplasia with lower urinary tract symptoms; N13.8 Other obstructive and reflux uropathy; R93.41 Abnormal radiologic findings on diagnostic imaging of renal pelvis, ureter, or bladder
CPT/HCPCS: 51610; 74450; 87086; 87088; 88108; 88305; J1100; J2001; J2405; J2704; J3010; J7120

== ENCOUNTER 2024-06-28 08:39 | Day surgery (SDC) | payer OTHER ==
[2024-06-23 15:54] LABS: Absolute Basophils 0.1 K/uL (0-0.5); Absolute Eosinophils 0.6 K/uL (0-0.5); Absolute Lymphocytes (CBC) 3.1 K/uL (0.7-4.9); Absolute Monocytes 0.8 K/uL (0.1-1.3); Absolute Neutrophil 5.5 K/uL (1.8-8.0); Basophils % 0.6 % (0-1.3); Eosinophils % 6.2 % (0-4.4); Hematocrit 41.7 % (39.6-49.0); Hemoglobin 13.8 g/dL (13.6-17.9); Lymphocytes % 30.5 % (15.3-44.8); MCH 26.9 pg (27.0-35.0); MCV 81.6 fL (80-100); MPV 7.2 fL (7.6-11.3); Monocytes % 8.1 % (3.3-12.3); Neutrophils % 54.6 % (41.7-73.7); Nucleated Red Blood Cells % 0.1 % (0-0); Platelets 435 thou/uL (152-406); RBC Red Blood Cell Count 5.12 M/uL (4.33-5.43); Red Cell Distribution Width 15.7 % (12.1-15.2)
[2024-06-23 16:00] LABS: PT Prothrombin Time 11.9 SECONDS (9.4-12.5); Protime INR 1.06
[2024-06-23 16:01] LABS: Anion Gap 8.8 mEq/L (5.0-15.0); Potassium 3.8 mEq/L (3.5-5.1)
[2024-06-28] MEDS: Ringers Lactate 1,000 ML IV ONE (09:10)
[2024-06-28] MEDS ORDERED: NA CIT/CITRIC AC 30 ML ORAL UDC ONE (09:13)
[2024-06-28] MEDS: CEFAZOLIN SODIUM 2 GM/VIAL ONE (10:24)
[2024-06-28] MEDS ORDERED: propofoL 200 MG/20 ML VIAL IV ONE (10:37)
[2024-06-28] MEDS ORDERED: LIDOCAINE 1% MPF 5 ML VIAL ONE (10:37)
[2024-06-28] MEDS ORDERED: MIDAZOLAM HCL 2 MG/2 ML INJ ONE (10:37)
[2024-06-28] MEDS ORDERED: FENTANYL CITR 100 MCG/2 ML ONE (10:37)
[2024-06-28] MEDS ORDERED: EPHEDRINE SULF 50 MG/ML VIAL ONE (10:46)
[2024-06-28] MEDS ORDERED: KETOROLAC 30 MG/ML INJ ONE (11:08)
[2024-06-28] MEDS: HYDROMORPHONE HCL 1 MG/ML INJ ONE (11:55)
--- NOTE | 2024-06-28 12:07 | P.OP ---
Date of Service: 06/28/24 Preoperative diagnosis: CIS of the bladder Right renal filling defect Postoperative diagnoses: CIS of the bladder Right renal filling defect Compound/complex right renal pelvic calyceal system Principal procedures: Cystoscopy Right retrograde pyelography Right ureteral stent extraction Right ureteroscopy with pyeloscopy Indication for procedure: This is a 70-year-old gentleman with history of recurrent ureterolithiasis without nephrolithiasis seen on CT who was admitted with gross hematuria and clot retention as a [id number] smoker with obstructive LUTS. He underwent cystoscopic evaluation subsequently with bladder biopsies as well as bilateral retrogrades on 04/26/2024 and the pathology revealed CIS. Right ureteral wash cytology was atypical, but filling defects were noted on the retrograde study. We were unable to fully investigate the right upper tract ureteroscopically on his last visit; so he presents today for completion of that analysis. Procedure note: The patient was consented in the preoperative holding area and in fact significant counseling was held as the patient was somewhat concerned and had a bunch of questions about the multiple number of procedures required and investigation of his bladder cancer and potential future treatments. I answered all of those questions in detail and counseled the patient accordingly on the nature of his high risk bladder cancer and the need to treat this and monitor it to prevent recurrence or progression that could result in . Upon transfer into the operative suite, he was placed in the lithotomy position, padded and secured to the table appropriately. He was given Ancef 2 g IV antimicrobial prophylaxis, and pneumoboots were provided for DVT prophylaxis. His genitalia was prepped with Hibiclens and he was draped in standard fashion. The case was begun using a 22 Algerian rigid cystoscope to traverse the urethra and into the bladder with ease. The bladder was decompressed of fluid and urine, and the previously observed lateral lobar hypertrophy with elevated median bar was again observed. The right ureteral stent was noted emanating from the ureteral orifice, and there was a degree of stent reaction in the posterior wall of the bladder with mucosal edema. Site of prior biopsy was also noted. No additional concerning papillary mucosal lesions, foreign bodies or stones were noted. As a result, I grasped the tip of the stent using an alligator grasper and delivered it to the meatus ensuring the proximal tip of the stent remained within the mid ureter. I then passed a sensor wire via the stent coiling it within the collecting system as evidenced fluoroscopically. I then passed a dual-lumen catheter into the distal ureter over the sensor wire. Right retrograde pyelography: Using a 70: 30 mixture of Omnipaque and saline, injected via the second lumen of the dual-lumen catheter, contrast did propagate up the distal into the mid and proximal ureter before entering the renal pelvis and calyces. In an effort to decrease the risk of pyelovenous reflux; I delineated the pelvis and calyces, but not all of the calyces did fill. The blunting in the midpole was again noted, and the lower pole calyx did not completely delineate. As a result, I passed a Bentson guidewire via the second lumen of the dual-lumen catheter coiling it within the upper pole of the kidney. I then remove the dual-lumen catheter and passed a flexible ureteroscope over the Bentson guidewire into the upper pole of his kidney. I then decompressed the kidney of the indwelling contrast to prevent pyelovenous reflux of the contrast given his severe iodinated contrast allergy, and then I used pressurized sterile saline to fill the calyces and the pelvis before surveying each of the calyces and infundibula using spot fluoroscopic imagery along the way to confirm each calyx had indeed been seen. He had a complex compound pelvic calyceal system, and the midpole region filling defect seen was in fact a calyx emanating directly off of the renal pelvis in that region without papillary urothelial neoplasm located within. I was able to navigate through each of the calyces and ultimately find my way into the lower pole calyx which was anterolateral in distribution, and surveyed it as well confirming the absence of any papillary urothelial neoplasm. I then injected contrast into the lower pole filling it and ensuring that all of the calyces had indeed been visualized before ultimately surveying back into the renal pelvis down into the proximal down through the mid and distal ureter on the way out. I then passed a 5 Algerian ureteral access catheter over the safety wire and decompressed the collecting system passively before removing the 5 Algerian ureteral access catheter slowly over the course of the next several minutes to try to decrease the need for replacement of the right ureteral stent. I asked the anesthesiologist to provide IV Toradol for ureteral spasm; then I removed the 5 Algerian ureteral access catheter after decompressing his bladder of fluid and urine by passing the cystoscope into his bladder again. He was then taken out of the lithotomy position, awakened from general anesthesia, transferred to a stretcher, and then transferred to the recovery room in good condition. Complications: None Discharge disposition: He should follow-up in the urology clinic to begin intravesical BCG induction course starting within the next 1 to 2 weeks. Subsequent outpatient cystoscopy should be planned 3 months from today's surgery.
--- NOTE | 2024-06-28 12:26 | RAD REPORT ---
EXAMUrethrocystogrphy Retrograde CLINICAL HISTORY: Right ureteral stent placement FINDINGS: The right ureter was cannulated and contrast administered. Subsequently a right ureteral stent placed . Procedure performed by Total fluoroscopy time: 0.3 minutes. 14 fluoroscopic spot images obtained.
[2024-06-28] MEDS ORDERED: HYDROCODONE/APAP 5/325 MG TAB ONE (12:49)
[2024-06-28] MEDS ORDERED: PHENAZOPYRIDINE 100MG TAB PO ONE (12:49)
[2024-06-28] MEDS: HYDROCODONE/APAP 5/325 MG TAB PO PRN (13:00)
[2024-06-28] MEDS: PHENAZOPYRIDINE 100MG TAB PO ONE (13:00)
[2024-06-28 13:36] VITALS: BP 137/67; TEMP 97.3; O2SAT 97
== END 2024-06-28 13:30 | disposition home or self-care (01) ==
LOC: OR 08:39
PROVIDERS: ATTEND Urology
PROC: 0TP98DZ Removal of Intraluminal Device from Ureter, Via Natural or Artificial Opening Endoscopic (ICD-10-PCS; principal; 2024-06-28 10:15)
DX: C67.9 Malignant neoplasm of bladder, unspecified (principal); R93.429 Abnormal radiologic findings on diagnostic imaging of unspecified kidney; T83.84XA Pain due to genitourinary prosthetic devices, implants and grafts, initial encounter; I10 Essential (primary) hypertension; F41.9 Anxiety disorder, unspecified
CPT/HCPCS: 87088; 85025; 87086; 80048; 36415; 85610; 74450; 51610; 52310; 52351; J2704; J2001; J2250; J3010; J1170; J7120

== ENCOUNTER 2024-08-09 07:44 | Day surgery (SDC) | payer OTHER ==
[2024-08-09] MEDS ORDERED: DOCEtaxeL 37.5 MG in NA CHLORIDE 0.9% 48.125 ML IS ONE (08:00)
[2024-08-09] MEDS ORDERED: Gemcitabine 26.3 ML IS ONE (08:00)
[2024-08-09 08:33] LABS: Specific Gravity 1.026 (1.005-1.030); Sqamous Epithelial <5 /HPF (None Seen); Transitional Epithelial <5 /HPF (None Seen); Urine Bacteria None Seen /HPF (<20); Urine Bilirubin NEGATIVE (Negative); Urine Blood Negative (Negative); Urine Clarity Clear (Clear); Urine Color Yellow (Yellow); Urine Culture Reflex Order NOT NEEDED; Urine Glucose 3+ (Negative); Urine Ketones NEGATIVE (Negative); Urine Microscopic Reflex YN ORDER UMIC; Urine Mucus Slight /HPF (None Seen); Urine Nitrite NEGATIVE (Negative); Urine Protein 1+ (Negative); Urine RBC <5 /HPF (None Seen); Urine Urobilinogen Normal (Normal); Urine pH 6.5 (5.0-7.0)
[2024-08-09] MEDS: OXYBUTYNIN ER 5 MG TAB PO ONE (08:42)
[2024-08-09] MEDS: DIAZEPAM 5 MG TABLET ONE (08:50)
[2024-08-09] MEDS ORDERED: LIDOCAINE JELLY 2% 5 ML SYRINGE TOP ONE (08:53)
[2024-08-09 09:33] VITALS: BP 152/83; TEMP 98.7; O2SAT 99; BMI 27.8
--- NOTE | 2024-08-18 08:12 | P.PN ---
Date of Service: 08/09/24 Preprocedure diagnosis: CIS of the bladder Postprocedure diagnosis: CIS of the bladder Principal procedures: Insertion of urethral Talavera catheter Sequential intravesical gemcitabine 1 g followed by docetaxel 37.5 mg intravesical chemotherapy, dose #1 of 6 Indication for procedure: 68-year-old gentleman with extensive smoking history who underwent bladder biopsies 04/26/2024 revealing CIS, subsequently evaluation of his upper tracts which suggested a filling defect but no evidence of upper tract urothelial malignancy appreciated 06/2024. Because of the BCG shortage, he is instead being treated with sequential gemcitabine docetaxel intravesical chemotherapy induction course, initiated 08/09/2024. Procedure note: The patient was consented before being placed supine on the procedure table. His genitalia was prepped with Hibiclens and draped in standard fashion. Lidocaine Uro-Jet was applied intraurethrally for local anesthesia. An 18 Irish urethral Talavera catheter was placed via his urethra into his bladder with ease, and it did good decompress of clear yellow urine. Urinalysis was sent and was nonsuspicious for any significant infection. He was given a dose of oxybutynin 10 mg extended release and Valium 5 mg to manage any bladder instability. This was the second treatment of 6 planned for the induction cour se, and he did express having a significant degree of fatigue that lasted him throughout the week, but no fever, chills or other adverse symptomatology or sign of allergic reaction. Once his bladder was completely decompressed, his genitalia was toweled off, and a fluid impermeable drape was placed over his body with the phallus brought through a hiatus of the drape. Initially, the gemcitabine 1 g in about 27 cc of NS was instilled into his bladder. A Vidhi clamp was applied to keep it in situ, and a leg bag was applied for ease of subsequent decompression. He was then encouraged to keep the solution in situ for the next 90 minutes before the clamp was removed and his bladder was decompressed of the associated fluid/chemotherapy and urine. He tolerated this well and without any expulsion of the chemotherapy. I then retrograde instilled the docetaxel 37.5 mg and 50 cc NS into his bladder. He was then encouraged to keep this in situ for 120 minutes, which he tolerated well and without sign of complication. This was then decompressed into the associated new leg bag that was applied, and the catheter was removed by deflating the balloon. He was then discharged from the clinic in good condition. No sign of any adverse reaction was noted. Complications: None Discharge disposition: Follow-up next week for dose #2 of 6 sequential gemcitabine docetaxel chemotherapy. Subsequent follow-up should be established after completion of the induction course so that we might plan repeat operative excursion for cystoscopy with bladder biopsies, given his CIS pathology. He also completed a PSA that was elevated and expressed some concerns about that. We will address this also on follow-up in preparation for OR.
== END 2024-08-09 14:20 | disposition home or self-care (01) ==
LOC: DS 07:44
PROVIDERS: ATTEND Urology
PROC: 3E0K705 Introduction of Other Antineoplastic into Genitourinary Tract, Via Natural or Artificial Opening (ICD-10-PCS; principal; 2024-08-09)
DX: C68.9 Malignant neoplasm of urinary organ, unspecified (principal); C67.9 Malignant neoplasm of bladder, unspecified
CPT/HCPCS: 81001

== ENCOUNTER 2024-09-20 05:58 | Day surgery (SDC) | payer OTHER ==
[2024-09-20 06:31] LABS: Specific Gravity 1.027 (1.005-1.030); Sqamous Epithelial <5 /HPF (None Seen); Urine Bacteria None Seen /HPF (<20); Urine Bilirubin NEGATIVE (Negative); Urine Blood 1+ (Negative); Urine Clarity Extremely Turbid (Clear); Urine Color Yellow (Yellow); Urine Culture Reflex Order REFLEXED; Urine Glucose NEGATIVE (Negative); Urine Ketones NEGATIVE (Negative); Urine Microscopic Reflex YN ORDER UMIC; Urine Mucus 1+ /HPF (None Seen); Urine Nitrite NEGATIVE (Negative); Urine Protein 1+ (Negative); Urine RBC 21-50 /HPF (None Seen); Urine Urobilinogen Normal (Normal); Urine WBC >50 /HPF (<5); Urine WBC Clump Few /HPF (None Seen); Urine pH 5.5 (5.0-7.0)
[2024-09-20] MEDS: DIAZEPAM 5 MG TABLET ONE (06:54)
[2024-09-20] MEDS: OXYBUTYNIN ER 5 MG TAB PO ONE (06:54)
[2024-09-20] MEDS ORDERED: LIDOCAINE JELLY 2% 5 ML SYRINGE TOP ONE (07:18)
[2024-09-20] MEDS ORDERED: DOCEtaxeL 37.5 MG in NA CHLORIDE 0.9% 48.125 ML IS ONE (07:30)
[2024-09-20] MEDS ORDERED: Gemcitabine 26.3 ML IS ONE ×2 (07:30)
[2024-09-20] MEDS: AMOXICILLIN TRIHYDR 250 MG CAP PO ONE (08:00)
[2024-09-20 08:46] VITALS: BMI 28.0
[2024-09-20 12:05] VITALS: BP 127/71; TEMP 97; O2SAT 98
--- NOTE | 2024-09-20 19:30 | P.PN ---
Date of Service: 09/20/24 Preprocedure diagnosis: CIS of the bladder Enterococcus UTI Postprocedure diagnosis: CIS of the bladder Enterococcus UTI Principal procedures: Insertion of urethral Talavera catheter Sequential intravesical gemcitabine 1 g followed by docetaxel 37.5 mg intravesical chemotherapy, dose #6 of 6 Indication for procedure: 68-year-old gentleman with extensive smoking history who underwent bladder biopsies 04/26/2024 revealing CIS, subsequently evaluation of his upper tracts which suggested a filling defect but no evidence of upper tract urothelial malignancy appreciated 06/2024. Because of the BCG shortage, he is instead being treated with sequential gemcitabine docetaxel intravesical chemotherapy induction course, initiated 08/09/2024. Enterococcus faecalis found on urine culture. Patient given a dose of amoxicillin 500 mg prior to the procedure. An additional prescription for Augmentin 875 mg twice daily sent for 7 days. Procedure note: The patient was consented before being placed supine on the procedure table. His genitalia was prepped with Hibiclens and draped in standard fashion. Lidocaine Uro-Jet was applied intraurethrally for local anesthesia. An 18 [place]an urethral Talavera catheter was placed via his urethra into his bladder with ease, and it did good decompress of clear yellow urine. Urinalysis was sent and was nonsuspicious for any significant infection. He was given a dose of oxybutynin 10 mg extended release and Valium 5 mg to manage any bladder instability. This was the second treatment of 6 planned for the induction course, and he did express having a significant degree of fatigue that lasted him throughout the week, but no fever, chills or other adverse symptomatology or sign of allergic reaction. Once his bladder was completely decompressed, his genitalia was toweled off, and a fluid impermeable drape was placed over his body with the phallus brought through a hiatus of the drape. Initially, the gemcitabine 1 g in about 27 cc of NS was instilled into his bladder. A Vidhi clamp was applied to keep it in situ, and a leg bag was applied for ease of subsequent decompression. He was then encouraged to keep the solution in situ for the next 90 minutes before the clamp was removed and his bladder was decompressed of the associated fluid/chemotherapy and urine. He tolerated this well and without any expulsion of the chemotherapy. I then retrograde instilled the docetaxel 37.5 mg and 50 cc NS into his bladder. He was then encouraged to keep this in situ for 120 minutes, which he tolerated well and without sign of complication. This was then decompressed into the associated new leg bag that was applied, and the catheter was removed by deflating the balloon. He was then discharged from the clinic in good condition. No sign of any adverse reaction was noted. Complications: None Discharge disposition: Office visit follow-up to plan repeat operative excursion for cystoscopy with bladder biopsies, given his CIS pathology. This should be scheduled 3 months from his last cysto with bladder biopsies procedure completed in the OR. He also completed a PSA that was elevated and expressed some concerns about that. We will plan to address this also on follow-up in a preop visit 1-2 weeks prior to the cysto with biopsies in the OR.
== END 2024-09-20 12:00 | disposition home or self-care (01) ==
LOC: DS 05:58
PROVIDERS: ATTEND Urology
PROC: 3E0K705 Introduction of Other Antineoplastic into Genitourinary Tract, Via Natural or Artificial Opening (ICD-10-PCS; principal; 2024-09-20)
DX: C67.9 Malignant neoplasm of bladder, unspecified (principal); C68.9 Malignant neoplasm of urinary organ, unspecified
CPT/HCPCS: 87088; 81001; 87086; 51720; J9171; J9201; 87077; 87186

== ENCOUNTER → 2024-09-27 | Day surgery (SDC) | payer OTHER ==
[2024-09-22 14:45] LABS: Absolute Eosinophils 0.5 K/uL (0-0.5); Absolute Lymphocytes (CBC) 2.3 K/uL (0.7-4.9); Absolute Monocytes 0.5 K/uL (0.1-1.3); Absolute Neutrophil 4.7 K/uL (1.8-8.0); Basophils % 0.6 % (0-1.3); Eosinophils % 5.7 % (0-4.4); Hematocrit 42.1 % (39.6-49.0); Hemoglobin 13.8 g/dL (13.6-17.9); Lymphocytes % 28.7 % (15.3-44.8); MCH 28.6 pg (27.0-35.0); MCHC 32.7 g/dL (32.0-36.0); MCV 87.6 fL (80-100); Monocytes % 6.1 % (3.3-12.3); Neutrophils % 58.9 % (41.7-73.7); Nucleated Red Blood Cells % 0.1 % (0-0); Platelets 445 thou/uL (152-406); RBC Red Blood Cell Count 4.81 M/uL (4.33-5.43); Red Cell Distribution Width 19.4 % (12.1-15.2)
[2024-09-22 14:50] LABS: PT Prothrombin Time 12.4 SECONDS (9.4-12.5); Protime INR 1.11
[2024-09-22 15:00] LABS: Anion Gap 6.5 mEq/L (5.0-15.0); Potassium 3.5 mEq/L (3.5-5.1)
[~2024-09-27] MED LIST: EPHEDRINE SULF 50 MG/ML VIAL ONE; FENTANYL CITR 100 MCG/2 ML ONE; LIDOCAINE 1% MPF 5 ML VIAL ONE; MIDAZOLAM HCL 2 MG/2 ML INJ ONE; ONDANSETRON 4 MG/2 ML VIAL ONE; PHENAZOPYRIDINE 100MG TAB PO ONE; Phenylephrine HCl 10 MG/ML 1 ML VIAL ONE; Ringers Lactate 1,000 ML IV ONE; propofoL 200 MG/20 ML VIAL IV ONE
[2024-09-27] MEDS: ONDANSETRON 4 MG/2 ML VIAL IV ONE (12:05)
[2024-09-27] MEDS: Gentamicin Inj 240 MG in NA CHLORIDE 0.9% 100 ML IV ONE (13:47)
[2024-09-27] MEDS: AMPICILLIN SODIUM 2 GM/VIAL VIAL ONE (15:00)
[2024-09-27] MEDS: Ringers Lactate 1,000 ML IV ONE (15:21)
[2024-09-27] MEDS: PHENAZOPYRIDINE 100MG TAB PO ONE (16:17)
--- NOTE | 2024-09-27 17:30 | P.OP ---
Date of Service: 09/27/24 Preoperative diagnosis: CIS of the bladder History of right renal filling defect, no pathologic lesion observed ureteroscopically 06/28/2024 Post induction sequential gemcitabine docetaxel intravesical chemotherapy completed 09/20/2024 Postoperative diagnoses: Erythematous bladder lesions CIS of the bladder History of right renal filling defect, no pathologic lesion observed ureteroscopically 06/28/2024 Post induction sequential gemcitabine docetaxel intravesical chemotherapy completed 09/20/2024 Principal procedures: Cystoscopy with bladder biopsies and fulguration Placement of urethral Talavera catheter Indication for procedure: 69-year-old gentleman initially seen as an inpatient with gross hematuria. Subsequent outpatient cystoscopic evaluation revealed the presence of erythematous patches of the bladder, which when subsequently biopsied revealed CIS. Additionally, a right renal filling defect was suspected on imaging; so he went to initial stent placement followed by definitive right ureteroscopy with pyeloscopy. No papillary urothelial neoplasms were noted within the collecting system. Also, because of the unavailability of BCG, he was given an induction course of intravesical sequential gemcitabine docetaxel chemotherapy, which was completed 09/20/2024. He presents today for operative reevaluation of his history of CIS. Procedure note: The patient was consented in the preoperative holding area before being transferred to the operative suite where general anesthesia was induced. He was given ampicillin 2 g and gentamicin 240 mg IV antimicrobial prophylaxis, and pneumoboots were provided for DVT prophylaxis. He was placed in the lithotomy position, padded and secured to the table appropriately. His genitalia was prepped with Hibiclens and he was draped in standard fashion. The case was begun using a 22 Romanian rigid cystoscope to traverse the urethra and navigate beyond an obstructing prostatic urethra with lateral lobar hypertrophy and an elevated median bar with mild intravesical projection abutting the trigone. Within the bladder, the ureteral orifices were orthotopic in location, and there were no papillary mucosal lesions, foreign bodies or stones. However in the posterior dome of the bladder to the right and also anteriorly to the left, there were erythematous patches of irregular mucosa. These could have been from catheter trauma owing to his recent catheterization for the sequential chemotherapy. However, targeted biopsies of each of those regions were taken in order to sample the areas adequately. About 4 biopsies were taken from the posterior dome lesion and an additional 3 biopsies taken from the anterior wall lesion. I then took random biopsies from the trigone region, the left lateral wall, and the right lateral wall. Each of these were sent separately for pathologic analysis. Then, using a Bugbee electrode at a cautery setting of 30 in sterile water irrigation, I fulgurated the base of each of these lesions until completely hemostatic. The bladder was decompressed of fluid and urine, and any additional fulguration was performed to ensure no ongoing bleeding. There was some prostatic urethral hematuria owing to the passage of the scope via his obstructing prostatic urethra. As a result, at the end of the case, I placed an 18 Romanian coud Talavera catheter into his bladder with 25 cc of sterile water in the balloon to tamponade the prostatic urethral bleeding. I then placed the catheter to a mild degree of traction after taking the patient out of the lithotomy position. He was then awakened from general anesthesia before being transferred to a stretcher, and then he was transferred to the recovery room in good condition. Complications: None Discharge disposition: He will be given a voiding trial in the recovery room recognizing that given the degree of obstruction from his prostate, a risk of postoperative retention does exist. He will be counseled to ensure he is taking 0.8 mg of daily Flomax, and we will discuss other options for management of his obstruction due to BPH on follow-up. Otherwise, follow-up should be established in 1 to 2 weeks time to discuss the pathology of today's bladder biopsies. Subsequent adjuvant/maintenance treatment will be determined thereafter.
[2024-09-27] MEDS: CODEINE 30MG/APAP 300MG TAB PO PRN (17:51)
== END | disposition home or self-care (01) ==
LOC: OR 10:50
PROVIDERS: ATTEND Urology
PROC: 0TBB8ZX Excision of Bladder, Via Natural or Artificial Opening Endoscopic, Diagnostic (ICD-10-PCS; principal; 2024-09-27 13:45)
DX: D09.0 Carcinoma in situ of bladder (principal); N32.89 Other specified disorders of bladder; I10 Essential (primary) hypertension; E78.5 Hyperlipidemia, unspecified; F41.9 Anxiety disorder, unspecified; F17.210 Nicotine dependence, cigarettes, uncomplicated
CPT/HCPCS: 85025; 80048; 36415; 85610; 82947; 88305; 52204; J2704; J2003; J2371; J1580; J2250; J3010 ×2; J2405 ×3; J0290; J7120 ×2

== ENCOUNTER 2024-11-01 08:00 | Day surgery (SDC) | payer OTHER ==
[~2024-11-01 08:00] MED LIST changes: +DOCEtaxeL 37.5 MG in NA CHLORIDE 0.9% 48.125 ML IS ONE; -EPHEDRINE SULF 50 MG/ML VIAL ONE; -FENTANYL CITR 100 MCG/2 ML ONE; +Gemcitabine 26.3 ML IS ONE; -LIDOCAINE 1% MPF 5 ML VIAL ONE; -MIDAZOLAM HCL 2 MG/2 ML INJ ONE; -ONDANSETRON 4 MG/2 ML VIAL ONE; -PHENAZOPYRIDINE 100MG TAB PO ONE; -Phenylephrine HCl 10 MG/ML 1 ML VIAL ONE; -Ringers Lactate 1,000 ML IV ONE; -propofoL 200 MG/20 ML VIAL IV ONE
[2024-11-01 08:20] LABS: Specific Gravity 1.028 (1.005-1.030); Sqamous Epithelial <5 /HPF (None Seen); Transitional Epithelial <5 /HPF (None Seen); Urine Bacteria <20 /HPF (<20); Urine Bilirubin NEGATIVE (Negative); Urine Blood Negative (Negative); Urine Clarity Turbid (Clear); Urine Color Yellow (Yellow); Urine Culture Reflex Order REFLEXED; Urine Glucose NEGATIVE (Negative); Urine Ketones NEGATIVE (Negative); Urine Microscopic Reflex YN ORDER UMIC; Urine Mucus Slight /HPF (None Seen); Urine Nitrite NEGATIVE (Negative); Urine Protein TRACE (Negative); Urine Urobilinogen Normal (Normal); Urine pH 5.5 (5.0-7.0)
[2024-11-01 08:22] VITALS: BMI 28.5
[2024-11-01] MEDS: OXYBUTYNIN ER 5 MG TAB PO ONE (08:39)
[2024-11-01] MEDS: DIAZEPAM 5 MG TABLET ONE (08:39)
[2024-11-01] MEDS ORDERED: LIDOCAINE JELLY 2% 5 ML SYRINGE TOP ONE (08:43)
[2024-11-01 11:15] VITALS: BP 128/56; TEMP 98.5; O2SAT 95
--- NOTE | 2024-11-01 13:30 | P.PN ---
Date of Service: 11/01/24 Preprocedure diagnosis: H/o CIS of the bladder Postprocedure diagnosis: H/o CIS of the bladder Principal procedures: Insertion of urethral Talavera catheter Administration of monthly maintenance sequential intravesical gemcitabine 1 g followed by docetaxel 37.5 mg intravesical chemotherapy Indication for procedure: 69-year-old gentleman with extensive smoking history who underwent bladder biopsies 04/26/2024 revealing CIS, subsequently evaluation of his upper tracts which suggested a filling defect but no evidence of upper tract urothelial malignancy appreciated 06/2024. Because of the BCG shortage, he is instead being treated with sequential gemcitabine docetaxel intravesical chemotherapy induction course, 08/09/2024 - 09/20/24, with resolution of the CIS, now electing to proceed with monthly maintenance sequential intravesical chemotherapy targeting 1 year, till June 2025. Procedure note: The patient was consented before being placed supine on the procedure table. His genitalia was prepped with Hibiclens and draped in standard fashion. Lidocaine Uro-Jet was applied intraurethrally for local anesthesia. An 18 Fr ench urethral Talavera catheter was placed via his urethra into his bladder with ease, and it did good decompress of clear yellow urine. Urinalysis was sent and was nonsuspicious for any significant infection. He was given a dose of oxybutynin 10 mg extended release and Valium 5 mg to manage any bladder instability. This was the second treatment of 6 planned for the induction course, and he did express having a significant degree of fatigue that lasted him throughout the week, but no fever, chills or other adverse symptomatology or sign of allergic reaction. Once his bladder was completely decompressed, his genitalia was toweled off, and a fluid impermeable drape was placed over his body with the phallus brought through a hiatus of the drape. Initially, the gemcitabine 1 g in about 27 cc of NS was instilled into his bladder. A Vidhi clamp was applied to keep it in situ, and a leg bag was applied for ease of subsequent decompression. He was then encouraged to keep the solution in situ for the next 90 minutes before the clamp was removed and his bladder was decompressed of the associated fluid/chemotherapy and urine. He tolerated this well and without any expulsion of the chemotherapy. I then retrograde instilled the docetaxel 37.5 mg and 50 cc NS into his bladder. He was then encouraged to keep this in situ for 120 minutes, which he tolerated well and without sign of complication. This was then decompressed into the associated new leg bag that was applied, and the catheter was removed by deflating the balloon. He was then discharged from the clinic in good condition. No sign of any adverse reaction was noted. Complications: None Discharge disposition: Follow-up next month for continuation of his monthly maintenance sequential intravesical gemcitabine docetaxel chemotherapy, targeting June 2025. Cystoscopy mid December in office.
== END 2024-11-01 13:56 | disposition home or self-care (01) ==
LOC: DS 08:00
PROVIDERS: ATTEND Urology
PROC: 3E0K705 Introduction of Other Antineoplastic into Genitourinary Tract, Via Natural or Artificial Opening (ICD-10-PCS; principal; 2024-11-01)
DX: C68.9 Malignant neoplasm of urinary organ, unspecified (principal); C67.9 Malignant neoplasm of bladder, unspecified
CPT/HCPCS: 87088; 81001; 87086; 51720; J9171; J9201

== ENCOUNTER 2024-11-29 06:25 | Day surgery (SDC) | payer OTHER ==
[2024-11-28 11:42] LABS: Specific Gravity 1.023 (1.005-1.030); Sqamous Epithelial <5 /HPF (None Seen); Urine Bacteria None Seen /HPF (<20); Urine Bilirubin NEGATIVE (Negative); Urine Blood Negative (Negative); Urine Clarity Clear (Clear); Urine Color Light-Yellow (Yellow); Urine Culture Reflex Order NOT NEEDED; Urine Glucose NEGATIVE (Negative); Urine Ketones NEGATIVE (Negative); Urine Microscopic Reflex YN ORDER UMIC; Urine Mucus Slight /HPF (None Seen); Urine Nitrite NEGATIVE (Negative); Urine Protein TRACE (Negative); Urine RBC <5 /HPF (None Seen); Urine Urobilinogen Normal (Normal); Urine WBC <5 /HPF (<5); Urine pH 6.5 (5.0-7.0)
[2024-11-29] MEDS: DIAZEPAM 5 MG TABLET ONE (06:57)
[2024-11-29] MEDS: OXYBUTYNIN ER 5 MG TAB PO ONE (06:57)
[2024-11-29] MEDS: LIDOCAINE JELLY 2% 5 ML SYRINGE TOP ONE (07:04)
[2024-11-29 07:55] VITALS: TEMP 98.4; BMI 28.5
[2024-11-29] MEDS ORDERED: DOCEtaxeL 37.5 MG in NA CHLORIDE 0.9% 48.125 ML IS ONE (08:00)
[2024-11-29] MEDS ORDERED: Gemcitabine 26.3 ML IS ONE (08:00)
[2024-11-29 14:12] VITALS: BP 124/63; O2SAT 99
--- NOTE | 2024-11-29 18:42 | P.PN ---
Date of Service: 11/29/24 Preprocedure diagnosis: H/o CIS of the bladder Vasovagal syncope Postprocedure diagnosis: H/o CIS of the bladder Vasovagal syncope Principal procedures: Insertion of urethral Talavera catheter Administration of monthly maintenance sequential intravesical gemcitabine 1 g followed by docetaxel 37.5 mg intravesical chemotherapy Indication for procedure: 69-year-old gentleman with extensive smoking history who underwent bladder biopsies 04/26/2024 revealing CIS, subsequently evaluation of his upper tracts which suggested a filling defect but no evidence of upper tract urothelial malignancy appreciated 06/2024. Because of the BCG shortage, he is instead being treated with sequential gemcitabine docetaxel intravesical chemotherapy i nduction course, 08/09/2024 - 09/20/24, with resolution of the CIS, now electing to proceed with monthly maintenance sequential intravesical chemotherapy targeting 1 year, till June 2025. Of note, today, immediately prior to catheter insertion, the patient suffered a vasovagal syncopal episode. This was observed by the day surgery nurses, who managed him appropriately and placed him onto a monitor, after which time his vitals recovered from a low of 90s over 40s into the 120s systolic along with his mentation. The patient did mention that he has had this happen before throughout his life and that he was recommended to see a director regulatory agency in evaluation, but he had yet to complete that consultation. I strongly recommended he see a director regulatory agency to look for any structural defect in his heart contributing to these recurrent episodes of syncope, and since he was only interested in seeing a director regulatory agency here in [place], I indicated there were 2 with which I was aware of, Dr. Fu and Dr. Clark. Dr. Bello may also be here in [place], but his office may be in [place]. Procedure note: The patient was consented before being placed supine on the procedure table. His genitalia was prepped with Hibiclens and draped in standard fashion. Lidocaine Uro-Jet was applied intraurethrally for local anesthesia. An 18 [place] urethral Talavera catheter was placed via his urethra into his bladder with ease, and it did good decompress of clear yellow urine. Urinalysis was sent and was nonsuspicious for any significant infection. He was given a dose of oxybutynin 10 mg extended release and Valium 5 mg to manage any bladder instability. This was the second treatment of 6 planned for the induction course, and he did express having a significant degree of fatigue that lasted h im throughout the week, but no fever, chills or other adverse symptomatology or sign of allergic reaction. Once his bladder was completely decompressed, his genitalia was toweled off, and a fluid impermeable drape was placed over his body with the phallus brought through a hiatus of the drape. Initially, the gemcitabine 1 g in about 27 cc of NS was instilled into his bladder. A Vidhi clamp was applied to keep it in situ, and a leg bag was applied for ease of subsequent decompression. He was then encouraged to keep the solution in situ for the next 90 minutes before the clamp was removed and his bladder was decompressed of the associated fluid/chemotherapy and urine. He tolerated this well and without any expulsion of the chemotherapy. I then retrograde instilled the docetaxel 37.5 mg and 50 cc NS into his bladder. He was then encouraged to keep this in situ for 120 minutes, which he tolerated well and without sign of complication. This was then decompressed into the associated new leg bag that was applied, and the catheter was removed by deflating the balloon. He was then discharged from the clinic in good condition. No sign of any adverse reaction was noted. Complications: None Discharge disposition: Follow-up next month for continuation of his monthly maintenance sequential intravesical gemcitabine docetaxel chemotherapy, targeting June 2025. Cystoscopy mid December in office.
== END 2024-11-29 12:31 | disposition home or self-care (01) ==
LOC: DS 06:25
PROVIDERS: ATTEND Urology
PROC: 3E0K705 Introduction of Other Antineoplastic into Genitourinary Tract, Via Natural or Artificial Opening (ICD-10-PCS; principal; 2024-11-29)
DX: C68.9 Malignant neoplasm of urinary organ, unspecified (principal); C67.9 Malignant neoplasm of bladder, unspecified
CPT/HCPCS: 81001; 51720 ×2; J9171; J9201

== ENCOUNTER 2024-12-27 06:22 | Day surgery (SDC) | payer OTHER ==
[2024-12-27] MEDS: OXYBUTYNIN ER 5 MG TAB PO ONE (06:25)
[2024-12-27 06:47] LABS: Specific Gravity 1.023 (1.005-1.030); Sqamous Epithelial <5 /HPF (None Seen); Urine Bacteria None Seen /HPF (<20); Urine Bilirubin NEGATIVE (Negative); Urine Blood Negative (Negative); Urine Clarity Clear (Clear); Urine Color Yellow (Yellow); Urine Crystals Unidentified Few /HPF (None Seen); Urine Culture Reflex Order REFLEXED; Urine Glucose NEGATIVE (Negative); Urine Ketones NEGATIVE (Negative); Urine Microscopic Reflex YN ORDER UMIC; Urine Mucus Slight /HPF (None Seen); Urine Nitrite NEGATIVE (Negative); Urine Protein TRACE (Negative); Urine RBC <5 /HPF (None Seen); Urine Urobilinogen Normal (Normal); Urine WBC <5 /HPF (<5)
[2024-12-27 06:50] VITALS: BP 139/72; TEMP 97.7; O2SAT 98; BMI 28.5
[2024-12-27] MEDS: DIAZEPAM 5 MG TABLET ONE (06:55)
[2024-12-27] MEDS ORDERED: Gemcitabine 26.3 ML IS ONE (07:15)
[2024-12-27] MEDS ORDERED: DOCEtaxeL 37.5 MG in NA CHLORIDE 0.9% 48.125 ML IS ONE (07:15)
[2024-12-27] MEDS: LIDOCAINE JELLY 2% 5 ML SYRINGE TOP ONE (07:22)
--- NOTE | 2024-12-27 13:25 | P.PN ---
Date of Service: 12/27/24 Preprocedure diagnosis: H/o CIS of the bladder Postprocedure diagnosis: H/o CIS of the bladder Principal procedures: Insertion of urethral Talavera catheter Administration of monthly maintenance sequential intravesical gemcitabine 1 g followed by docetaxel 37.5 mg intravesical chemotherapy Indication for procedure: 69-year-old gentleman with extensive smoking history who underwent bladder biopsies 04/26/2024 revealing CIS, subsequently evaluation of his upper tracts which suggested a filling defect but no evidence of upper tract urothelial malignancy appreciated 06/2024. Because of the BCG shortage, he is instead being treated with sequential gemcitabine docetaxel intravesical chemotherapy induction course, 08/09/2024 - 09/20/24, with resolution of the CIS, now electing to proceed with monthly maintenance sequential intravesical chemotherapy targeting 1 year, till June 2025. Of note, today, immediately prior to catheter insertion, the patient suffered a vasovagal syncopal episode. This was observed by the day surgery nurses, who managed him appropriately and placed him onto a monitor, after which time his vitals recovered from a low of 90s over 40s into the 120s systolic along with his mentation. The patient did mention that he has had this happen before throughout his life and that he was recommended to see a recoating machine operator in evaluation, but he had yet to complete that consultation. I strongly recommended he see a recoating machine operator to look for any structural defect in his heart contributing to these recurrent episodes of syncope, and since he was only interested in seeing a recoating machine operator here in [place], I indicated there were 2 with which I was aware of, Dr. Fu and Dr. Clark. Dr. Bello may also be here in [place], but his office may be in [place]. Procedure note: The patient was consented before being placed supine on the procedure table. His genitalia was prepped with Hibiclens and draped in standard fashion. Lidocaine Uro-Jet was applied intraurethrally for local anesthesia. An 18 Sinhala urethral Talavera catheter was placed via his urethra into his bladder with ease, and it did good decompress of clear yellow urine. Urinalysis was sent and was nonsuspicious for any significant infection. He was given a dose of oxybutynin 10 mg extended release and Valium 5 mg to manage any bladder instability. This was the second treatment of 6 planned for the induction course, and he did express having a significant degree of fatigue that lasted him throughout the week, but no fever, chills or other adverse symptomatology or sign of allergic reaction. Once his bladder was completely decompressed, his genitalia was toweled off, and a fluid impermeable drape was placed over his body with the phallus brought through a hiatus of the drape. Initially, the gemcitabine 1 g in about 27 cc of NS was instilled into his bladder. A Vidhi clamp was applied to keep it in situ, and a leg bag was applied for ease of subsequent decompression. He was then encouraged to keep the solution in situ for the next 90 minutes before the clamp was removed and his bladder was decompressed of the associated fluid/chemotherapy and urine. He tolerated this well and without any expulsion of the chemotherapy. I then retrograde instilled the docetaxel 37.5 mg in 50 cc NS into his bladder. He was then encouraged to keep this in situ for 120 minutes, which he tolerated well and without sign of complication. This was then decompressed into the associated new leg bag that was applied, and the catheter was removed by deflating the balloon. He was then discharged from the clinic in good condition. No sign of any adverse reaction was noted. Complications: None Discharge disposition: Follow-up next month for continuation of his monthly maintenance sequential intravesical gemcitabine docetaxel chemotherapy, targeting June 2025. Cystoscopy in 3 months, mid-March, around 03/27/25.
== END 2024-12-27 12:07 | disposition home or self-care (01) ==
LOC: DS 06:22
PROVIDERS: ATTEND Urology
PROC: 3E0K705 Introduction of Other Antineoplastic into Genitourinary Tract, Via Natural or Artificial Opening (ICD-10-PCS; principal; 2024-12-27)
DX: C67.9 Malignant neoplasm of bladder, unspecified (principal); C68.9 Malignant neoplasm of urinary organ, unspecified
CPT/HCPCS: 87088; 81001; 87086; 51720 ×2; J9171; J9201